=== PATIENT | male | born 1950 | race Caucasian/White ===

== ENCOUNTER → 2016-11-17 | Outpatient (CLI) | payer MEDICARE ==
[~2016-11-17] MED LIST: ASP81TEC PO; DEXL60CA5 PO; HCT25T PO; LISI40TA PO; NFNEB10T PO; ONDA-42 SL
--- NOTE | 2016-11-17 12:12 | Diagnostic Imaging Report ---
INDICATION: Chest pain. PA and lateral chest obtained at 10:04 a.m. FINDINGS: Heart and mediastinal silhouette are normal in appearance. The lungs are clear. There is no pneumothorax or pleural fluid. IMPRESSION: Negative chest. Dictated by: Dictated on workstation # [id number]
== END ==
LOC: RAD 09:39
PROVIDERS: ATTEND Nurse Practitioner Family
DX: R05 Cough (principal)
CPT/HCPCS: 71020

== ENCOUNTER 2017-09-11 06:28 | Observation (INO) | payer MEDICARE ==
[~2017-09-11] VITALS: Ht 172.7 cm; Wt 96.2 kg
[~2017-09-11 06:28] MED LIST changes: +ASPI-999 PO; +ATOR40TA PO; +CLOP75TA28 PO; +LISI1TAB10 PO; +PANT40TA3 PO
[2017-09-11 06:42] LABS: BASOPHILS % (AUTO) 0 % (0-10); EOSINOPHILS # (AUTO) 0.1 10^3/uL (0.0-0.3); EOSINOPHILS % (AUTO) 2 % (0-10); HEMATOCRIT 42 % (40-54); LYMPHOCYTES # (AUTO) 2.6 X 10^3 (1.0-4.0); LYMPHOCYTES % (AUTO) 42 % (12-44); MEAN CORPUSCULAR HEMOGLOBIN 32 PG (25-34); MEAN CORPUSCULAR HGB CONC 36 G/DL (32-36); MEAN CORPUSCULAR VOLUME 88 FL (80-99); MEAN PLATELET VOLUME 9.9 FL (7.4-10.4); MONOCYTES # (AUTO) 0.7 X 10^3 (0.0-1.0); MONOCYTES % (AUTO) 11 % (0-12); NEUTROPHILS # (AUTO) 2.8 X 10^3 (1.8-7.8); NEUTROPHILS % (AUTO) 46 % (42-75); PLATELET COUNT 185 10^3/uL (130-400); RED BLOOD COUNT 4.73 10^6/uL (4.35-5.85); RED CELL DISTRIBUTION WIDTH 13.7 % (10.0-14.5); WHITE BLOOD COUNT 6.2 10^3/uL (4.3-11.0)
[2017-09-11] MEDS ORDERED: ASPIRIN 81 MG CHEW (CHILDREN'S ASA) PO ONE (06:45)
--- NOTE | 2017-09-11 06:51 | ED Chest Pain ---
General Chief Complaint: Chest Pain Stated Complaint: CHEST PAIN Source: patient Exam Limitations: no limitations History of Present Illness Date Seen by Provider: Sep 11, 2017 Time Seen by Provider: 06:25 Initial Comments Here with report of chest pain that is in the center of his chest along the lower third of the sternum. It is nonradiating. Seems to be worse when lying on his chest and better when lying on his back. States the pain is usually worse in the evening and nighttime as well as the morning and better during the day when he is working. The pain is been going on for 3 weeks. 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 Pain is to be a little worse today so he presents for evaluation. Denies breathing problems, nausea, vomiting, weakness or dizziness. Does have history of heart stent last year as well as being treated for hypertension and cholesterol. Reports taking his meds as directed. Timing/Duration: changing over time Severity/Quality: moderate, aching Location: central Radiation: no radiation Activities at Onset: none Prior CP/Workup: cardiac cath Modifying Factors: improves with lying down (on his chest), improves with movement ASA po DECK SUPERVISOR: No NTG SL DECK SUPERVISOR: No Associated Symptoms: No back pain, No fever/chills, No nausea/vomiting, No shortness of breath, No weakness Allergies and Home Medications Allergies Coded Allergies: No Known Drug Allergies (Unverified , 03/03/11) Home Medications Aspirin 81 Mg Tab.chew, 81 MG PO DAILY Prescribed by: REBECA MYERS on 12/24/16856 Atorvastatin Calcium 40 Mg Tablet, 40 MG PO HS Prescribed by: REBECA MYERS on 12/24/16856 Clopidogrel Bisulfate 75 Mg Tablet, 75 MG PO DAILY Prescribed by: REBECA MYERS on 12/24/16856 Lisinopril/Hydrochlorothiazide 1 Each Tablet, 1 TAB PO DAILY, (Reported) Pantoprazole Sodium 40 Mg Tablet.dr, 40 MG PO DAILY@0700 Prescribed by: REBECA MYERS on 12/24/16856 Patient Home Medication List Home Medication List Reviewed: Yes Review of Systems Constitutional: see HPI; No chills, No fever EENTM: No Symptoms Reported Respiratory: No Symptoms Reported Cardiovascular: See HPI, Chest Pain; Denies Edema, Denies Lightheadedness Gastrointestinal: Denies Abdominal Pain, Denies Nausea, Denies Vomiting Genitourinary: No Symptoms Reported Musculoskeletal: no symptoms reported Skin: no symptoms reported All Other Systems Reviewed Negative Unless Noted: Yes Past Wbvqzvy-Tnxzrb-Cyiqur Hx Past Med/Social Hx: Reviewed Nursing Past Med/Soc Hx Patient Social History Alcohol Use: Denies Use Recreational Drug Use: No Smoking Status: Never a Smoker 2nd Hand Smoke Exposure: No Recent Foreign Travel: No Contact w/Someone Who Travel: No Recent Hopitalizations: No Physical Abuse: No Sexual Abuse: No Mistreated: No Fear: No Immunizations Up To Date Tetanus Booster (TDap): More than 5yrs Date of Influenza Vaccine: Mar 11, 2013 Seasonal Allergies Seasonal Allergies: No Past Medical History Surgeries: Yes Abdominal (EGD), Coronary Stent, Orthopedic Respiratory: No Cardiac: Yes Hypertension Neurological: No Reproductive Disorders: No Gastrointestinal: Yes (esophageal stricture with dilation) Musculoskeletal: No Endocrine: No Cancer: No Psychosocial: No Nursing Suicide Risk Score: 0 Integumentary: No Blood Disorders: No Family Medical History Reviewed Nursing Family Hx No Pertinent Family Hx Physical Exam Vital Signs Vital Signs - First Documented 09/11/17 06:28 Temp 97.6 Pulse 66 Resp 18 B/P (MAP) 152/93 (112) Pulse Ox 95 O2 Delivery Room Air O2 Flow Rate 2.0 Capillary Refill : General Appearance: No Apparent Distress, WD/WN HEENT: PERRL/EOMI, Pharynx Normal Neck: Non Tender, Supple Respiratory: Chest Non Tender, Lungs Clear, Normal Breath Sounds Cardiovascular: Regular Rate, Rhythm, No Murmur Gastrointestinal: Non Tender, Soft Extremity: Normal Inspection, Normal Range of Motion, Non Tender Neurologic/Psychiatric: Alert, Oriented x3 Skin: Normal Color, Warm/Dry Progress/Results/Core Measures Lab Results Laboratory Tests Test 09/11/17 06:35 Range/Units White Blood Count 6.2 4.3-11.0 10^3/uL Red Blood Count 4.73 4.35-5.85 10^6/uL Hemoglobin 15.0 13.3-17.7 G/DL Hematocrit 42 40-54 % Mean Corpuscular Volume 88 80-99 FL Mean Corpuscular Hemoglobin 32 25-34 PG Mean Corpuscular Hemoglobin Concent 36 32-36 G/DL Red Cell Distribution Width 13.7 10.0-14.5 % Platelet Count 185 130-400 10^3/uL Mean Platelet Volume 9.9 7.4-10.4 FL Neutrophils (%) (Auto) 46 42-75 % Lymphocytes (%) (Auto) 42 12-44 % Monocytes (%) (Auto) 11 0-12 % Eosinophils (%) (Auto) 2 0-10 % Basophils (%) (Auto) 0 0-10 % Neutrophils # (Auto) 2.8 1.8-7.8 X 10^3 Lymphocytes # (Auto) 2.6 1.0-4.0 X 10^3 Monocytes # (Auto) 0.7 0.0-1.0 X 10^3 Eosinophils # (Auto) 0.1 0.0-0.3 10^3/uL Basophils # (Auto) 0.0 0.0-0.1 10^3/uL Prothrombin Time 12.5 12.2-14.7 SEC INR Comment 0.9 0.8-1.4 Activated Partial Thromboplast Time 30 24-35 SEC D-Dimer 0.30 0.00-0.49 UG/ML Sodium Level 142 135-145 MMOL/L Potassium Level 3.9 3.6-5.0 MMOL/L Chloride Level 112 H 98-107 MMOL/L Carbon Dioxide Level 21 21-32 MMOL/L Anion Gap 9 5-14 MMOL/L Blood Urea Nitrogen 22 H 7-18 MG/DL Creatinine 0.95 0.60-1.30 MG/DL Estimat Glomerular Filtration Rate > 60 BUN/Creatinine Ratio 23 Glucose Level 104 70-105 MG/DL Calcium Level 9.1 8.5-10.1 MG/DL Magnesium Level 2.4 1.8-2.4 MG/DL Total Bilirubin 0.8 0.1-1.0 MG/DL Aspartate Amino Transf (AST/SGOT) 35 H 5-34 U/L Alanine Aminotransferase (ALT/SGPT) 41 0-55 U/L Alkaline Phosphatase 69 40-136 U/L Myoglobin 115.6 H 10.0-92.0 NG/ML Troponin I < 0.30 <0.30 NG/ML Total Protein 6.9 6.4-8.2 GM/DL Albumin 4.0 3.2-4.5 GM/DL Lipase 19 8-78 U/L My Orders Orders - SHIRLEY LARA MD Cbc With Automated Diff (09/11/17 06:31) Magnesium (09/11/17 06:31) Chest 1 View, Ap/Pa Only (09/11/17 06:31) Ekg Tracing (09/11/17 06:31) Cardiac Profile 1 (09/11/17 06:31) Comprehensive Metabolic Panel (09/11/17 06:31) Myoglobin Serum (09/11/17 06:31) Protime With Inr (09/11/17 06:31) Partial Thromboplastin Time (09/11/17 06:31) O2 (09/11/17 06:31) Monitor-Rhythm Ecg Trace Only (09/11/17 06:31) Lipid Panel (09/12/17 06:00) Aspirin Chewable Tablet (Baby Aspirin Ch (09/11/17 06:45) Saline Lock/Iv-Start (09/11/17 06:31) Lipase (09/11/17 06:31) Fibrin Degradation Products (09/11/17 06:31) Medications Given in ED Current Medications Medications Dose Ordered Sig/Kayleigh Route Start Time Stop Time Status Last Admin Dose Admin Aspirin 324 mg ONCE ONCE PO 09/11/17 06:45 09/11/17 06:46 DC 09/11/17 06:42 324 MG Vital Signs/I&O 09/11/17 09/11/17 09/11/17 09/11/17 06:28 06:28 06:48 07:42 Temp 97.6 Pulse 66 55 Resp 18 18 B/P (MAP) 152/93 (112) 170/68 (102) Pulse Ox 95 95 97 O2 Delivery Room Air Nasal Cannula Nasal Cannula Room Air O2 Flow Rate 2.0 2.00 Progress Note : Progress Note Seen and evaluated. IV, labs, EKG and chest x-ray ordered. ASA 324 mg by mouth ordered. Reviewed previous history including heart catheterization from last year. Monitor patient. 0735: Dr. Woodall paged. 2361: I discussed the case with Dr. Blanco, on-call for cardiology. Not sure if Dr. Celaya is in town currently. We will retry after 8 a.m. and likely admit for observation. 9781: I was unable to reach Dr. Woodall and. Dr. Blanco will see patient in consult today and is requesting admission. I discussed the case with Dr. Castro and she accepts patient for admission, observation status for continued workup of the chest pain. This was discussed with the patient who agrees. Initial ECG Impression Date: Sep 11, 2017 Initial ECG Impression Time: 06:25 Initial ECG Rate: 58 Initial ECG Rhythm: Normal Sinus Initial ECG Impression: Normal Initial ECG Comparisson: Unchanged Comment Sinus rhythm with first degree AV block and right bundle branch block. Unchanged from previous of 12/24/16. No evidence of ST elevation [place]. Interpreted by me. Diagonstic Imaging: Xray Plain Films/CT/US/NM/MRI: chest Comments %(RAD)RES..mtdd.print.filter("cj")[facility] %(RAD)RES..mtdd.print.filter("cj")[place], [place] NAME: DELVIS DE LA GARZA [facility] REC#: [id number] PT STATUS: REG ER : 1950 PHYSICIAN: SHIRLEY LARA MD ADMIT DATE: 09/11/17/ER Draft Date of Exam:09/11/17 CHEST 1 VIEW, AP/PA ONLY INDICATION: Chest pain. TECHNIQUE: Single view chest 6:45 AM. CORRELATION STUDY: 12/22/2016 FINDINGS: Heart size enlarged. Mediastinum is prominent but generally stable given difference in technique. Vasculature within normal limits. The lungs are clear with no consolidating infiltrate. There is no significant effusion or pneumothorax. IMPRESSION: 1. Generally stable chest demonstrates no acute abnormality. Dictated on workstation # [id number] Dict: 09/11/17 0652 Trans: 09/11/17 0654 CORNELIA [id number] Interpreted by: MARYAN DONOVAN DO Electronically signed by: Departure Communication (Admissions) Time/Spoke to Admitting Phy: 08:30 Time/Spoke to Consulting Phy: 08:25 Impression Primary Impression: Chest pain Qualified Codes: R07.9 - Chest pain, unspecified Disposition: ADMITTED INPATIENT Condition: Stable Admissions Decision to Admit Reason: Admit from ER (General) Decision to Admit/Date: Sep 11, 2017 Time/Decision to Admit Time: 08:25 Departure-Patient Inst. Decision time for Depature: 08:25 Referrals: ZACK LEAVITT MD (PCP/Family) Primary Care Physician SHIRLEY LARA MD Sep 11, 2017 06:51
--- NOTE | 2017-09-11 06:55 | Diagnostic Imaging Report ---
INDICATION: Chest pain. TECHNIQUE: Single view chest 6:45 AM. CORRELATION STUDY: 12/22/2016 FINDINGS: Heart size enlarged. Mediastinum is prominent but generally stable given difference in technique. Vasculature within normal limits. The lungs are clear with no consolidating infiltrate. There is no significant effusion or pneumothorax. IMPRESSION: 1. Generally stable chest demonstrates no acute abnormality. Dictated by: Dictated on workstation # [id number]
[2017-09-11 06:58] LABS: INR 0.9 (0.8-1.4); PROTHROMBIN TIME PATIENT 12.5 SEC (12.2-14.7)
[2017-09-11 07:09] LABS: ALANINE AMINOTRANSFERASE 41 U/L (0-55); ALKALINE PHOSPHATASE 69 U/L (40-136); BILIRUBIN,TOTAL 0.8 MG/DL (0.1-1.0); BUN/CREATININE RATIO 23; CALCIUM 9.1 MG/DL (8.5-10.1); CARBON DIOXIDE 21 MMOL/L (21-32); CHLORIDE 112 MMOL/L (98-107); CREATININE SERUM 0.95 MG/DL (0.60-1.30); GFR ESTIMATED > 60; GLUCOSE 104 MG/DL (70-105); LIPASE 19 U/L (8-78); MAGNESIUM 2.4 MG/DL (1.8-2.4); POTASSIUM 3.9 MMOL/L (3.6-5.0); SODIUM 142 MMOL/L (135-145); TOTAL PROTEIN 6.9 GM/DL (6.4-8.2)
[2017-09-11 07:16] LABS: MYOGLOBIN SERUM 115.6 NG/ML (10.0-92.0)
[2017-09-11 07:42] VITALS: BP 170/68
--- OUTSIDE RECORDS SUMMARY | 2017-09-11 08:43 | XMS REPORT | Continuity of Care Document ---
Author Author [facility] Organization [facility] Address Unknown Phone Unavailable Allergies Active Description Code Type Severity Reaction Onset Reported/Identified Relationship to Patient Clinical Status Yes No Known Drug Allergies [id number] Drug Allergy Unknown N/A 03/03/2011 Medications There is no data. Problems Date Dx Coded Attending Type Code Diagnosis Diagnosed By 03/11/2013 ABHIJEET XIE MD Ot 272.4 HYPERLIPIDEMIA NEC/NOS 03/11/2013 ABHIJEET XIE MD Ot 276.8 HYPOPOTASSEMIA 03/11/2013 ABHIJEET XIE MD Ot 401.9 HYPERTENSION NOS 03/11/2013 ABHIJEET XIE MD Ot 414.01 CORONARY ATHEROSCLEROSIS OF [place] CORON 03/11/2013 ABHIJEET XIE MD Ot 427.89 CARDIAC DYSRHYTHMIAS NEC 03/11/2013 ABHIJEET XIE MD Ot 530.3 ESOPHAGEAL STRICTURE 03/11/2013 ABHIJEET XIE MD Ot 530.81 ESOPHAGEAL REFLUX 03/11/2013 ABHIJEET XIE MD Ot 786.50 CHEST PAIN NOS 03/11/2013 ABHIJEET XIE MD Ot V58.69 OTH MED,LT,CURRENT USE 11/24/2013 MICHEAL ALANIS DO Ot 558.9 NONINF GASTROENTERIT NEC 11/17/2016 ZACK LEAVITT MD Ot 530.5 DYSKINESIA OF ESOPHAGUS 11/17/2016 ZACK LEAVITT MD Ot 786.05 SHORTNESS OF BREATH 11/17/2016 ZACK LEAVITT MD Ot 786.50 CHEST PAIN NOS 12/12/2016 MORENITA MEJIA MARITIME GUARD Ot R05 COUGH 12/19/2016 MORENITA MEJIA APRN Ot R05 COUGH 12/24/2016 TIFFANIE PULLIAM MD Ot E78.5 HYPERLIPIDEMIA, UNSPECIFIED 12/24/2016 TIFFANIE PULLIAM MD Ot I10 ESSENTIAL (PRIMARY) HYPERTENSION 12/24/2016 TIFFANIE PULLIAM MD Ot I25.110 ATHSCL HEART DISEASE OF [place] COR ART W 12/24/2016 HERACLIO NOONAN, TIFFANIE Maravilla Ot R73.09 OTHER ABNORMAL GLUCOSE 12/24/2016 TIFFANIE PULLIAM MD Ot 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 02/20/2017 TREE NOONAN ZACK D Ot 530.5 DYSKINESIA OF ESOPHAGUS 02/20/2017 TREE NOONAN ZACK D Ot 786.05 SHORTNESS OF BREATH 02/20/2017 TREE NOONAN ZACK D Ot 786.50 CHEST PAIN NOS 02/20/2017 MORENITA MEJIA MARITIME GUARD Ot R05 COUGH 02/20/2017 TREE NOONAN ZACK Annamarie Ot 530.5 DYSKINESIA OF ESOPHAGUS 02/20/2017 TREE NOONAN ZACK D Ot 786.05 SHORTNESS OF BREATH 02/20/2017 TREE NOONAN ZACK D Ot 786.50 CHEST PAIN NOS 02/20/2017 MORENITA MEJIA MARITIME GUARD Ot R05 COUGH 03/10/2017 TREE NOONAN ZACK D Ot 530.5 DYSKINESIA OF ESOPHAGUS 03/10/2017 TREE NOONAN ZACK D Ot 786.05 SHORTNESS OF BREATH 03/10/2017 TREE NOONAN ZACK D Ot 786.50 CHEST PAIN NOS 03/10/2017 MORENITA MEJIA MARITIME GUARD Ot R05 COUGH 03/19/2017 TREE NOONAN ZACK D Ot 530.5 DYSKINESIA OF ESOPHAGUS 03/19/2017 TREE NOONAN ZACK D Ot 786.05 SHORTNESS OF BREATH 03/19/2017 TREE NOONAN ZACK D Ot 786.50 CHEST PAIN NOS 03/19/2017 MORENITA MEJIA MARITIME GUARD Ot R05 COUGH 09/09/2017 TREE NOONAN ZACK D Ot 530.5 DYSKINESIA OF ESOPHAGUS 09/09/2017 TREE NOONAN ZACK D Ot 786.05 SHORTNESS OF BREATH 09/09/2017 TREE NOONAN ZACK D Ot 786.50 CHEST PAIN NOS 09/09/2017 MORENITA MEJIA MARITIME GUARD Ot R05 COUGH Procedures There is no data. Results Test Result Range Complete blood count (CBC) with automated white blood cell (WBC) differential - 12/22/16 17:57 Blood leukocytes automated count (number/volume) 7.4 10*3/uL 4.3-11.0 Blood erythrocytes automated count (number/volume) 4.86 10*6/uL 4.35-5.85 Venous blood hemoglobin measurement (mass/volume) 15.4 g/dL 13.3-17.7 Blood hematocrit (volume fraction) 44 % 40-54 Automated erythrocyte mean corpuscular volume 90 [foz_us] 80-99 Automated erythrocyte mean corpuscular hemoglobin (mass per erythrocyte) 32 pg 25-34 Automated erythrocyte mean corpuscular hemoglobin concentration measurement ( mass/volume) 35 g/dL 32-36 Automated erythrocyte distribution width ratio 14.2 % 10.0-14.5 Automated blood platelet count (count/volume) 202 10*3/uL 130-400 Automated blood platelet mean volume measurement 10.4 [foz_us] 7.4-10.4 Automated blood neutrophils/100 leukocytes 64 % 42-75 Automated blood lymphocytes/100 leukocytes 28 % 12-44 Blood monocytes/100 leukocytes 7 % 0-12 Automated blood eosinophils/100 leukocytes 1 % 0-10 Automated blood basophils/100 leukocytes 0 % 0-10 Blood neutrophils automated count (number/volume) 4.7 10*3 1.8-7.8 Blood lymphocytes automated count (number/volume) 2.1 10*3 1.0-4.0 Blood monocytes automated count (number/volume) 0.5 10*3 0.0-1.0 Automated eosinophil count 0.1 10*3/uL 0.0-0.3 Automated blood basophil count (count/volume) 0.0 10*3/uL 0.0-0.1 PT panel in platelet poor plasma by coagulation assay - 12/22/16 17:57 Prothrombin time (PT) in platelet poor plasma by coagulation assay 12.7 s 12.2-14.7 INR in platelet poor plasma or blood by coagulation assay 1.0 0.8-1.4 Activated partial thromboplastin time (aPTT) in platelet poor plasma bycoagulation assay - 12/22/16 17:57 Activated partial thromboplastin time (aPTT) in platelet poor plasma bycoagulation assay 28 s 24-35 Comprehensive metabolic panel - 12/22/16 17:57 Serum or plasma sodium measurement (moles/volume) 140 mmol/L 135-145 Serum or plasma potassium measurement (moles/volume) 3.8 mmol/L 3.6-5.0 Serum or plasma chloride measurement (moles/volume) 106 mmol/L 98-107 Carbon dioxide 21 mmol/L 21-32 Serum or plasma anion gap determination (moles/volume) 13 mmol/L 5-14 Serum or plasma urea nitrogen measurement (mass/volume) 21 mg/dL 7-18 Serum or plasma creatinine measurement (mass/volume) 1.09 mg/dL 0.60-1.30 Serum or plasma urea nitrogen/creatinine mass ratio 19 NRG Serum or plasma creatinine measurement with calculation of estimated glomerular filtration rate > NRG Serum or plasma glucose measurement (mass/volume) 128 mg/dL 70-105 Serum or plasma calcium measurement (mass/volume) 9.3 mg/dL 8.5-10.1 Serum or plasma total bilirubin measurement (mass/volume) 1.0 mg/dL 0.1-1.0 Serum or plasma alkaline phosphatase measurement (enzymatic activity/volume) 54 U/L 40-136 Serum or plasma aspartate aminotransferase measurement (enzymatic activity/ volume) 16 U/L 5-34 Serum or plasma alanine aminotransferase measurement (enzymatic activity/volume ) 28 U/L 0-55 Serum or plasma protein measurement (mass/volume) 7.0 g/dL 6.4-8.2 Serum or plasma albumin measurement (mass/volume) 4.0 g/dL 3.2-4.5 Magnesium - 12/22/16 17:57 Magnesium 1.7 mg/dL 1.8-2.4 Serum or plasma troponin i.cardiac measurement (mass/volume) - 12/22/16 17:57 Serum or plasma troponin i.cardiac measurement (mass/volume) < ng/ mL <0.30 Myoglobin, serum - 12/22/16 17:57 Myoglobin, serum 60.9 ng/mL 10.0-92.0 Lipase - 12/22/16 17:57 Lipase 16 U/L 8-78 Serum or plasma troponin i.cardiac measurement (mass/volume) - 12/23/16 00:40 Serum or plasma troponin i.cardiac measurement (mass/volume) < ng/ mL <0.30 Lipid 1996 panel - 12/23/16 03:59 Serum or plasma triglyceride measurement (mass/volume) 167 mg/dL <150 Serum or plasma cholesterol measurement (mass/volume) 159 mg/dL < 200 Serum or plasma cholesterol in HDL measurement (mass/volume) 32 mg/ dL 40-60 Cholesterol in LDL [mass/volume] in serum or plasma by direct assay 107 mg/dL 1-129 Serum or plasma cholesterol in VLDL measurement (mass/volume) 33 mg/ dL 5-40 PT panel in platelet poor plasma by coagulation assay - 12/23/16 12:05 Prothrombin time (PT) in platelet poor plasma by coagulation assay 12.3 s 12.2-14.7 INR in platelet poor plasma or blood by coagulation assay 0.9 0.8-1.4 Activated partial thromboplastin time (aPTT) in platelet poor plasma bycoagulation assay - 12/23/16 12:05 Activated partial thromboplastin time (aPTT) in platelet poor plasma bycoagulation assay 27 s 24-35 Methicillin resistant Staphylococcus aureus (MRSA) screening culture - 13:27 Methicillin resistant Staphylococcus aureus (MRSA) screening culture NEG [facility] Complete blood count (CBC) with automated white blood cell (WBC) differential - 12/24/16 08:20 Blood leukocytes automated count (number/volume) 7.7 10*3/uL 4.3-11.0 Blood erythrocytes automated count (number/volume) 4.98 10*6/uL 4.35-5.85 Venous blood hemoglobin measurement (mass/volume) 15.9 g/dL 13.3-17.7 Blood hematocrit (volume fraction) 45 % 40-54 Automated erythrocyte mean corpuscular volume 91 [foz_us] 80-99 Automated erythrocyte mean corpuscular hemoglobin (mass per erythrocyte) 32 pg 25-34 Automated erythrocyte mean corpuscular hemoglobin concentration measurement ( mass/volume) 35 g/dL 32-36 Automated erythrocyte distribution width ratio 14.0 % 10.0-14.5 Automated blood platelet count (count/volume) 182 10*3/uL 130-400 Automated blood platelet mean volume measurement 9.9 [foz_us] 7.4-10.4 Automated blood neutrophils/100 leukocytes 64 % 42-75 Automated blood lymphocytes/100 leukocytes 26 % 12-44 Blood monocytes/100 leukocytes 8 % 0-12 Automated blood eosinophils/100 leukocytes 1 % 0-10 Automated blood basophils/100 leukocytes 0 % 0-10 Blood neutrophils automated count (number/volume) 4.9 10*3 1.8-7.8 Blood lymphocytes automated count (number/volume) 2.0 10*3 1.0-4.0 Blood monocytes automated count (number/volume) 0.6 10*3 0.0-1.0 Automated eosinophil count 0.1 10*3/uL 0.0-0.3 Automated blood basophil count (count/volume) 0.0 10*3/uL 0.0-0.1 Comprehensive metabolic panel - 12/24/16 08:20 Serum or plasma sodium measurement (moles/volume) 136 mmol/L 135-145 Serum or plasma potassium measurement (moles/volume) 4.2 mmol/L 3.6-5.0 Serum or plasma chloride measurement (moles/volume) 103 mmol/L 98-107 Carbon dioxide 24 mmol/L 21-32 Serum or plasma anion gap determination (moles/volume) 9 mmol/L 5-14 Serum or plasma urea nitrogen measurement (mass/volume) 17 mg/dL 7-18 Serum or plasma creatinine measurement (mass/volume) 0.94 mg/dL 0.60-1.30 Serum or plasma urea nitrogen/creatinine mass ratio 18 NRG Serum or plasma creatinine measurement with calculation of estimated glomerular filtration rate > NRG Serum or plasma glucose measurement (mass/volume) 172 mg/dL 70-105 Serum or plasma calcium measurement (mass/volume) 8.9 mg/dL 8.5-10.1 Serum or plasma total bilirubin measurement (mass/volume) 1.5 mg/dL 0.1-1.0 Serum or plasma alkaline phosphatase measurement (enzymatic activity/volume) 57 U/L 40-136 Serum or plasma aspartate aminotransferase measurement (enzymatic activity/ volume) 17 U/L 5-34 Serum or plasma alanine aminotransferase measurement (enzymatic activity/volume ) 30 U/L 0-55 Serum or plasma protein measurement (mass/volume) 6.8 g/dL 6.4-8.2 Serum or plasma albumin measurement (mass/volume) 3.9 g/dL 3.2-4.5 Magnesium - 12/24/16 08:20 Magnesium 2.0 mg/dL 1.8-2.4 Complete blood count (CBC) with automated white blood cell (WBC) differential - 09/11/17 06:35 Blood leukocytes automated count (number/volume) 6.2 10*3/uL 4.3-11.0 Blood erythrocytes automated count (number/volume) 4.73 10*6/uL 4.35-5.85 Venous blood hemoglobin measurement (mass/volume) 15.0 g/dL 13.3-17.7 Blood hematocrit (volume fraction) 42 % 40-54 Automated erythrocyte mean corpuscular volume 88 [foz_us] 80-99 Automated erythrocyte mean corpuscular hemoglobin (mass per erythrocyte) 32 pg 25-34 Automated erythrocyte mean corpuscular hemoglobin concentration measurement ( mass/volume) 36 g/dL 32-36 Automated erythrocyte distribution width ratio 13.7 % 10.0-14.5 Automated blood platelet count (count/volume) 185 10*3/uL 130-400 Automated blood platelet mean volume measurement 9.9 [foz_us] 7.4-10.4 Automated blood neutrophils/100 leukocytes 46 % 42-75 Automated blood lymphocytes/100 leukocytes 42 % 12-44 Blood monocytes/100 leukocytes 11 % 0-12 Automated blood eosinophils/100 leukocytes 2 % 0-10 Automated blood basophils/100 leukocytes 0 % 0-10 Blood neutrophils automated count (number/volume) 2.8 10*3 1.8-7.8 Blood lymphocytes automated count (number/volume) 2.6 10*3 1.0-4.0 Blood monocytes automated count (number/volume) 0.7 10*3 0.0-1.0 Automated eosinophil count 0.1 10*3/uL 0.0-0.3 Automated blood basophil count (count/volume) 0.0 10*3/uL 0.0-0.1 Fibrin D-dimer FEU measurement in platelet poor plasma (mass/volume) - 06:35 Fibrin D-dimer FEU measurement in platelet poor plasma (mass/volume) 0.30 ug/mL 0.00-0.49 PT panel in platelet poor plasma by coagulation assay - 09/11/17 06:35 Prothrombin time (PT) in platelet poor plasma by coagulation assay 12.5 s 12.2-14.7 INR in platelet poor plasma or blood by coagulation assay 0.9 0.8-1.4 Activated partial thromboplastin time (aPTT) in platelet poor plasma bycoagulation assay - 09/11/17 06:35 Activated partial thromboplastin time (aPTT) in platelet poor plasma bycoagulation assay 30 s 24-35 Comprehensive metabolic panel - 09/11/17 06:35 Serum or plasma sodium measurement (moles/volume) 142 mmol/L 135-145 Serum or plasma potassium measurement (moles/volume) 3.9 mmol/L 3.6-5.0 Serum or plasma chloride measurement (moles/volume) 112 mmol/L 98-107 Carbon dioxide 21 mmol/L 21-32 Serum or plasma anion gap determination (moles/volume) 9 mmol/L 5-14 Serum or plasma urea nitrogen measurement (mass/volume) 22 mg/dL 7-18 Serum or plasma creatinine measurement (mass/volume) 0.95 mg/dL 0.60-1.30 Serum or plasma urea nitrogen/creatinine mass ratio 23 NRG Serum or plasma creatinine measurement with calculation of estimated glomerular filtration rate > NRG Serum or plasma glucose measurement (mass/volume) 104 mg/dL 70-105 Serum or plasma calcium measurement (mass/volume) 9.1 mg/dL 8.5-10.1 Serum or plasma total bilirubin measurement (mass/volume) 0.8 mg/dL 0.1-1.0 Serum or plasma alkaline phosphatase measurement (enzymatic activity/volume) 69 U/L 40-136 Serum or plasma aspartate aminotransferase measurement (enzymatic activity/ volume) 35 U/L 5-34 Serum or plasma alanine aminotransferase measurement (enzymatic activity/volume ) 41 U/L 0-55 Serum or plasma protein measurement (mass/volume) 6.9 g/dL 6.4-8.2 Serum or plasma albumin measurement (mass/volume) 4.0 g/dL 3.2-4.5 Magnesium - 09/11/17 06:35 Magnesium 2.4 mg/dL 1.8-2.4 Myoglobin, serum - 09/11/17 06:35 Myoglobin, serum 115.6 ng/mL 10.0-92.0 Serum or plasma troponin i.cardiac measurement (mass/volume) - 09/11/17 06:35 Serum or plasma troponin i.cardiac measurement (mass/volume) < ng/ mL <0.30 Lipase - 09/11/17 06:35 Lipase 19 U/L 8-78 Myoglobin, serum - 09/11/17 06:35 Myoglobin, serum 115.6 ng/mL 10.0-92.0 Lipase - 09/11/17 06:35 Lipase 19 U/L 8-78 Encounters ACCT No. Visit Date/Time Discharge Status Pt. Type Provider Facility Loc./Unit Complaint [id number] 12/22/2016 20:40:00 12/24/2016 10:45:00 DIS Outpatient HERACLIO NOONAN, TIFFANIE Maravilla [facility] CHEST PAIN [id number] 11/17/2016 09:39:00 11/17/2016 23:59:59 CLS Outpatient MORENITA MEJIA APRN [facility] RAD COUGH [id number] 11/24/2013 04:48:00 11/24/2013 06:02:00 DIS Emergency ZEKE DO, MICHEAL Maravilla [facility] ER DIARRHEA X5 DAYS,LOW BLOOD PRESSURE [id number] 04/25/2013 10:42:00 04/25/2013 23:59:59 CLS Outpatient ZACK LEAVITT MD [facility] RAD CP,SOB [id number] 03/11/2013 07:30:00 03/11/2013 14:15:00 DIS Outpatient ANNE-MARIE NOONAN, ABHIJEET Riddle [facility] CATH CP [id number] 10/14/2012 08:57:00 10/14/2012 23:59:59 CLS Outpatient ZACK LEAVITT MD [facility] RAD DYSKINESIA OF ESOPHAGUS [id number] 09/11/2017 06:43:00 Document Registration [id number] 09/09/2017 16:28:00 PEN Preadmit REBECA MYERS [facility] CARD R07.89 CHEST DISCOMFORT
[2017-09-11 09:05] VITALS: BP 161/79
[2017-09-11] MEDS ORDERED: ATOR40TA70 PO (09:39)
[2017-09-11] MEDS ORDERED: CLOP75TA69 PO (09:39)
[2017-09-11] MEDS ORDERED: PANT40TA2 PO (09:39)
[2017-09-11] MEDS ORDERED: CATHETER FLUSH 10 ML SYR IV PRN (10:00)
[2017-09-11] MEDS ORDERED: morphine INJ 4 MG/ML 1 ML (VIAL/SYRINGE) IV PRN (10:00)
[2017-09-11] MEDS ORDERED: NITROGLYCERIN 0.4 MG SL TABS BTL 25'S SL PRN (10:00)
--- NOTE | 2017-09-11 10:18 | Consultation-Cardiology ---
HPI-Cardiology Cardiology Consultation: Date of Consultation 09/11/17 Time Seen by Provider: 10:15 Date of Admission Attending Physician Rima Castro MD Admitting Physician Derrell Leon MD Consulting Physician LISA NGUYEN MD, MA, FACP, FACC, FSCAI, CCDS HPI: Chief Complaint: CC: Chest discomfort 66 yo man with several week of lower midsternal and epigastric discomfort, continuous but with intermittent exacerbation, sometimes worse with swallowing or recumbency, w/o any aggravating or relieving factors, sometimes associated with a feeling of warmth that he identifies as his usual vasovagal episodes related to chronic esophageal disease. Mild difficulty with swallowing. No exertional cp or palp or syncope or shortness of breath or leg swelling Review of Systems-Cardiology Review of Systems Constitutional: No malaise, No tiredness, No weight loss, No weight gain Ears/Nose/Throat: No ear discharge, No nasal drainage, No recent hearing loss Respiratory: As described under HPI Cardiovascular: As described under HPI Gastrointestinal: As described under HPI; No constipation, No diarrhea, No nausea, No vomiting Genitourinary: No discharge, No hematuria, No other Musculoskeletal: No back pain, No joint pain Skin: No ulcerations Psychiatric/Neurological: No seizure, No focal weakness, No syncope Hematologic: No bleeding abnormalities All Other Systems Reviewed Negative Unless Noted: Yes HHL-Prxhxq-Maxlnj Hx Patient Social History Alcohol Use: Denies Use Recreational Drug Use: No Smoking Status: Never a Smoker 2nd Hand Smoke Exposure: No Recent Foreign Travel: No Recent Infectious Disease Expo: No Hospitalization with Isolation: Denies Immunizations Up To Date Tetanus Booster (TDap): More than 5yrs Date of Influenza Vaccine: Mar 11, 2013 Past Medical History PMH As described under Assessment. Family Medical History Family Medical History: He reports a brother with cardiomyopathy, but reports he had a h/o of ETOH abuse. No other family with h/o CAD. Allergies and Home Medications Allergies Coded Allergies: No Known Drug Allergies (Unverified , 09/11/17) Home Medications Atorvastatin Calcium 40 Mg Tablet, 40 MG PO HS, (Reported) Clopidogrel Bisulfate 75 Mg Tablet, 75 MG PO DAILY, (Reported) Lisinopril/Hydrochlorothiazide 1 Each Tablet, 1 TAB PO DAILY, (Reported) Pantoprazole Sodium 40 Mg Tablet.dr, 40 MG PO DAILY, (Reported) Patient Home Medication List Home Medication List Reviewed: Yes Physical Exam-Cardiology Physical Exam Vital Signs/I&O 09/11/17 09/11/17 09/11/17 09/11/17 06:28 06:28 06:48 07:42 Temp 97.6 Pulse 66 55 Resp 18 18 B/P (MAP) 152/93 (112) 170/68 (102) Pulse Ox 95 95 97 O2 Delivery Room Air Nasal Cannula Nasal Cannula Room Air O2 Flow Rate 2.0 2.00 09/11/17 09/11/17 09/11/17 09/11/17 08:54 09:05 09:40 09:58 Temp 96.5 Pulse 59 57 53 53 Resp 18 18 B/P (MAP) 135/85 161/79 (106) Pulse Ox 98 96 O2 Delivery Room Air Room Air 09/11/17 12:00 Temp 96.1 Pulse 54 Resp 18 B/P (MAP) 162/77 (105) Pulse Ox 98 O2 Delivery Room Air Capillary Refill : Less Than 3 Seconds Constitutional: AAO x 3, well-developed, well-nourished HEENT: EOMI, hearing is well preserved; No xanthelasmas are seen Neck: No carotid bruit; carotid pulses are 2 + bilaterally, with good upstrokes Respiratory: No accessory muscle use; lungs clear to percussion Cardiovascular: regular rate-rhythm, S1 and S2, gallop/S3, systolic murmur ( faint SHAHNAZ at card base) Gastrointestinal: No tender; soft; No guarding, No rebound; audible bowel sounds Extremities: No clubbing, No cyanosis, No significant edema Neurologic/Psychiatric: oriented x 3, grossly intact, power is 5/5 both on sides Skin: No rash on exposed areas, No ulcerations on exposed areas Data Review Labs Laboratory Tests 09/11/17 06:35: White Blood Count 6.2, Red Blood Count 4.73, Hemoglobin 15.0, Hematocrit 42, Mean Corpuscular Volume 88, Mean Corpuscular Hemoglobin 32, Mean Corpuscular Hemoglobin Concent 36, Red Cell Distribution Width 13.7, Platelet Count 185, Mean Platelet Volume 9.9, Neutrophils (%) (Auto) 46, Lymphocytes (%) (Auto) 42, Monocytes (%) (Auto) 11, Eosinophils (%) (Auto) 2, Basophils (%) (Auto) 0, Neutrophils # (Auto) 2.8, Lymphocytes # (Auto) 2.6, Monocytes # (Auto) 0.7, Eosinophils # (Auto) 0.1, Basophils # (Auto) 0.0, Prothrombin Time 12.5, INR Comment 0.9, Activated Partial Thromboplast Time 30, D-Dimer 0.30, Sodium Level 142, Potassium Level 3.9, Chloride Level 112H, Carbon Dioxide Level 21, Anion Gap 9, Blood Urea Nitrogen 22H, Creatinine 0.95, Estimat Glomerular Filtration Rate > 60, BUN/Creatinine Ratio 23, Glucose Level 104, Calcium Level 9.1, Magnesium Level 2.4, Total Bilirubin 0.8, Aspartate Amino Transf (AST/SGOT) 35H , Alanine Aminotransferase (ALT/SGPT) 41, Alkaline Phosphatase 69, Total Creatine Kinase 468H, Myoglobin 115.6H, Troponin I < 0.30, Total Protein 6.9, Albumin 4.0, Lipase 19 Laboratory Tests 09/11/17 06:35 A/P-Cardiology Assessment/Admission Diagnosis Chest discomfort of undeterminded etiology. No evidence of ACS, so far CAD: Cardiac cath of December 23, 2016 90% lesion to mid cx which was successfully stented with Alp. Xience 2.5 mm x 28mm. 30% lesion to prox RCA. LVEF 70%. HTN HLP - statin tx H/O esophageal stricture - treated with dilation by Dr. Vides 3-4 years ago H/O vasovagal syncope - no recent episodes Elevated fasting glucose on lab of 12-23-16 Mild bilat carotid arterial disease per u/s of January 2017 Discussion and Recomendations * Symptoms are nonspecific for cardiac-related etiology, but more specific for esophageal-related etiology. He himself thinks his symptoms are esophageal and not cardiac. Nonetheless, it is difficult to definitely exclude a cardiac etiology. Given continual symptoms, we recommended card cath for definitive cor eval. We had a long discussion. He understands the rationale, procedure, risks, benefits, potential complications and alternatives of card cath and refuses * I discussed all of the above with Dr Castro. Ok to discharge from card standpoint if and when ACS ruled out with serial troponin measurements. F/u at our office in 1-2 weeks Clinical Quality Measures AMI/AHF: ASA po Prior to arrival: No LISA NGUYEN MD FACP FACC CCDS Sep 11, 2017 10:18
[2017-09-11 12:00] VITALS: BP 162/77
[2017-09-11] MEDS: CATHETER FLUSH 10 ML SYR IV SCH ×2 (12:34→20:31)
--- NOTE | 2017-09-11 13:54 | History & Physical-Hospitalist ---
History of Present Illness HPI/Chief Complaint Pt is a 66yoCM with a PMH of HTN and CAD s/p stenting who presented to the ER with CC of central chest pain. He describes it as a "hard pain" right in the center of his chest. This has been ongoing for the past month but became more intense this week. He was seen by his political reporter last week and was supposed to have a heart cath on 09/08 but cancelled it because he did not think this was heart related. His pain continued to worsen and became more severe so he presented to the ER. He denies any association with exertion. He has not dyspnea or radiation of pain. He believes this to be due to his esophagus. He states Dr Woodall saw him this morning and recommended a cath but he declined. He denies any difficulty swallowing, nausea, vomiting, or weight loss. He has seen Dr Ahuja in the past but has not followed up with him in 7-8 years. Source: patient Date Seen 09/11/17 Time Seen by Provider: 13:47 Attending Physician Rima Castro MD PCP Zack Leavitt MD Referring Physician Date of Admission Sep 11, 2017 at 8:25 am Home Medications & Allergies Home Medications Reviewed patient Home Medication Reconciliation performed by pharmacy medication reconciliations polysomnographic technician and/or nursing. Patients Allergies have been reviewed. Allergies Allergies Coded Allergies No Known Drug Allergies (Unverified09/11/17) Past Gialuxz-Bohxpc-Lseaoa Hx Past Med/Social Hx: Reviewed Nursing Past Med/Soc Hx Patient Social History Marrital Status: Employed/Student: employed Alcohol Use: Denies Use Recreational Drug Use: No Smoking Status: Never a Smoker 2nd Hand Smoke Exposure: No Physical Abuse Screen: No Sexual Abuse: No Recent Foreign Travel: No Contact w/other who traveled: No Recent Hopitalizations: No Recent Infectious Disease Expo: No Immunizations Up To Date Tetanus Booster (TDap): More than 5yrs Date of Influenza Vaccine: Mar 11, 2013 Seasonal Allergies Seasonal Allergies: No Past Medical History Surgeries: Abdominal, Coronary Stent, Orthopedic Cardiac: Coronary Artery Disease, Hypertension Reproductive: No History of Blood Disorders: No Family History Reviewed Nursing Family Hx Diabetes, Hypertension Review of Systems Constitutional: No chills, No fever EENTM: No blurred vision, No double vision, No nose congestion, No throat pain Respiratory: No cough, No dyspnea on exertion, No short of breath Cardiovascular: chest pain; No edema, No palpitations Gastrointestinal: No abdominal pain, No constipation, No diarrhea, No hematemesis, No heartburn, No loss of appetite, No nausea, No vomiting Genitourinary: No dysuria, No frequency Musculoskeletal: No joint pain, No muscle pain Skin: No lesions, No rash Psychiatric/Neurological: Denies Headache, Denies Numbness, Denies Tingling Physical Exam Physical Exam Vital Signs Vital Signs - First Documented 09/11/17 06:28 Temp 97.6 Pulse 66 Resp 18 B/P (MAP) 152/93 (112) Pulse Ox 95 O2 Delivery Room Air O2 Flow Rate 2.0 Capillary Refill : Less Than 3 SecondsLess Than 3 Seconds General Appearance: No Apparent Distress, WD/WN HEENT: PERRL/EOMI, Moist Mucous Membranes Neck: Non Tender, Supple Respiratory: Lungs Clear, No Respiratory Distress Cardiovascular: Regular Rate, Rhythm, No Murmur Gastrointestinal: Normal Bowel Sounds, Non Tender, Soft Extremity: Normal Capillary Refill, No Calf Tenderness Neurologic/Psychiatric: Alert, Oriented x3, Normal Mood/Affect Skin: Normal Color, Warm/Dry Results Results/Procedures Labs Laboratory Tests 09/11/17 06:35 Patient resulted labs reviewed. Imaging: Reviewed Imaging Report Assessment/Plan Admission Diagnosis Chest Pain Admission Status: Observation Diagnosis/Problems Diagnosis/Problems (1) Chest pain Status: Acute Assessment & Plan: Cardiology consulted, appreciate recs Continue ASA Recommended heart cath but patient declined will follow up with Dr Woodall as outpatient Trend troponins and if negative will plan to DC tomorrow Will need to follow up with Dr Brown or surgeon here likely EGD Qualifiers: Chest pain type: unspecified Qualified Codes: R07.9 - Chest pain, unspecified (2) CAD (coronary artery disease) Status: Chronic Assessment & Plan: Continue home meds Cardiology consulted, appreciate recs Monitor on Telemetry Qualifiers: Coronary Disease-Associated Artery/Lesion type: [place] artery [place] vs. transplanted heart: [place] heart Associated angina: angina presence unspecified Qualified Codes: I25.10 - Atherosclerotic heart disease of [place] coronary artery without angina pectoris (3) Prophylactic measure Assessment & Plan: HH diet Lovenox Saline lock Clinical Quality Measures AMI/AHF: ASA po Prior to arrival: No DVT/VTE Risk/Contraindication: Risk Factor Score Per Nursin RFS Level Per Nursing on Admit: 3=High Copy Copies To 1: LISA WOODALL MD FACP FACC CCDS; ZACK LEAVITT MD, KATELYN M MD Sep 11, 2017 1:54 pm
[2017-09-11 15:52] VITALS: BP 146/69
[2017-09-11 20:38] VITALS: BP 158/70
[2017-09-11] MEDS ORDERED: ATORVASTATIN 40 MG (LIPITOR) TABLET PO SCH (21:00)
[2017-09-12 01:19] VITALS: BP 145/80
[2017-09-12 04:25] VITALS: BP 158/84
[2017-09-12] MEDS: CATHETER FLUSH 10 ML SYR IV SCH (06:31)
[2017-09-12] MEDS ORDERED: PANTOPRAZOLE 40 MG (PROTONIX) TAB PO SCH (07:00)
[2017-09-12 07:18] LABS: CHOLESTEROL 93 MG/DL (< 200); HDL CHOLESTEROL 32 MG/DL (40-60); TRIGLYCERIDES 60 MG/DL (<150); VLDL CHOLESTEROL 12 MG/DL (5-40)
[2017-09-12 08:00] VITALS: BP 140/75
[2017-09-12] MEDS ORDERED: CLOPIDOGREL 75 MG (PLAVIX) TABLET PO SCH (09:00)
[2017-09-12] MEDS ORDERED: HYDROCHLOROTHIAZIDE 25 MG (HCTZ) TAB PO SCH (09:00)
[2017-09-12] MEDS ORDERED: NON-FORMULARY MEDICATION 1 EA EA (Lisinopril/Hydrochlorothiazide (Lisinopril-Hctz 20-25 mg PO SCH (09:00)
[2017-09-12] MEDS ORDERED: lisINopril 20 MG (PRINIVIL) TABLET PO SCH (09:00)
[2017-09-12] MEDS ORDERED: ASPIRIN 81 MG CHEW (CHILDREN'S ASA) PO SCH (09:00)
[2017-09-12] MEDS ORDERED: ASPI-999 PO (09:26)
--- NOTE | 2017-09-12 09:28 | Discharge Inst-Simple/Standard ---
Discharge Inst-Standard Discharge Medications New, Converted or Re-Newed RX: Call to Patients Pharmacy Patient Instructions/Follow Up Plan of Care/Instructions/FU: Please continue to take your medications as written and keep your follow up as scheduled with Dr Gallego and Dr Woodall. Activity as Tolerated: Yes Discharge Diet: Cardiac Diet Return to The Hospital For: Chest pain, SOB, or if you feel you are getting worse. Planned Outpatient Orders/Ref. Pneu Vac Indicated: Yes GUILLERMO DELEON MD Sep 12, 2017 09:28
--- NOTE | 2017-09-12 09:33 | Discharge Summary-Hospitalist ---
Diagnosis/Chief Complaint Date of Admission Sep 11, 2017 at 08:25 Date of Discharge Discharge Date: Sep 12, 2017 Admission Diagnosis Chest Pain Discharge Diagnosis (1) Chest pain Status: Acute Assessment & Plan: Cardiology consulted, appreciate recs Continue ASA and Plavix Recommended heart cath but patient declined will follow up with Dr Woodall as outpatient Troponin negative x3 Will need to follow up with Dr Brown or surgeon here likely EGD (2) CAD (coronary artery disease) Status: Chronic Assessment & Plan: Continue home meds Cardiology consulted, appreciate recs Monitor on Telemetry (3) Prophylactic measure Assessment & Plan: HH diet Lovenox Saline lock Discharge Summary Procedures/Consulations Cardiology- Dr Woodall Discharge Physical Exam Allergies: Coded Allergies: No Known Drug Allergies (Unverified , 09/11/17) Vitals & I&Os Vital Signs Date Time Temp Pulse Resp B/P (MAP) Pulse Ox O2 Delivery O2 Flow Rate FiO2 09/12/17 08:45 Room Air 09/12/17 08:00 98.7 73 16 140/75 (96) 95 09/11/17 23:00 2.00 General Appearance: Alert, Oriented X3 Respiratory: Clear to Auscultation Cardiovascular: Regular Rate Hospital Course Pt is a 66yoCM who presented with atypical chest pain. Given his history of CAD he was admitted for a ACS rule out. He was offered heart catheterization and counseled on the risk and benefits with Dr Woodall but he declined. Troponins were trended and negative. His symptoms resolved on discharge and he was requesting DC home. He is to follow up with Dr Woodall for his CAD and he has been referred to Dr Gallego for EGD as Dr Brown could not get him in until October. Labs (last 24 hrs) Laboratory Tests 09/11/17 17:58: Troponin I < 0.30 09/11/17 23:35: Troponin I < 0.30 09/12/17 06:18: Triglycerides Level 60, Cholesterol Level 93, LDL Cholesterol Direct 47, VLDL Cholesterol 12, HDL Cholesterol 32L Patient resulted labs reviewed. Pending Labs Laboratory Tests 09/12/17 06:18: Triglycerides Level 60, Cholesterol Level 93, LDL Cholesterol Direct 47, VLDL Cholesterol 12, HDL Cholesterol 32 Imaging: Reviewed Imaging Report Discussion & Recommendations Discharge Planning: >30 minutes discharge planning Discharge Home Medications: Active Scripts Active Aspirin 81 Mg Tab.chew 81 Mg PO DAILY@0900 Reported Plavix (Clopidogrel Bisulfate) 75 Mg Tablet 75 Mg PO DAILY Atorvastatin Calcium 40 Mg Tablet 40 Mg PO HS Protonix (Pantoprazole Sodium) 40 Mg Tablet.dr 40 Mg PO DAILY Lisinopril-Hctz 20-25 mg Tab (Lisinopril/Hydrochlorothiazide) 1 Each Tablet 1 Tab PO DAILY Instructions to patient/family Please see electronic discharge instructions given to patient. Clinical Quality Measures AMI/AHF: ASA po Prior to arrival: No DVT/VTE Risk/Contraindication: Risk Factor Score Per Nursin RFS Level Per Nursing on Admit: 3=High Problem Qualifiers (1) Chest pain: Chest pain type: unspecified Qualified Codes: R07.9 - Chest pain, unspecified (2) CAD (coronary artery disease): Coronary Disease-Associated Artery/Lesion type: [place] artery [place] vs. transplanted heart: [place] heart Associated angina: angina presence unspecified Qualified Codes: I25.10 - Atherosclerotic heart disease of [place] coronary artery without angina pectoris GUILLERMO DELEON MD Sep 12, 2017 09:33
== END 2017-09-12 09:27 | disposition home or self-care (01) ==
LOC: EDUNIT# 06:28 → ER 06:30 → 4TH 08:25
PROVIDERS: ADMIT Family Medicine; ATTEND Family Medicine
DX: R07.9 Chest pain, unspecified (principal); I25.10 Atherosclerotic heart disease of native coronary artery without angina pectoris; I10 Essential (primary) hypertension; E78.5 Hyperlipidemia, unspecified; I65.23 Occlusion and stenosis of bilateral carotid arteries
CPT/HCPCS: 36415; 71045; 80053; 80061; 82550; 83690; 83735; 83874; 84484; 85025; 85379; 85610; 85730; 93005; 93041

== ENCOUNTER 2017-09-17 15:20 | Outpatient (CLI) | payer MEDICARE ==
[~2017-09-17] VITALS: Ht 172.7 cm; Wt 96.2 kg
[~2017-09-17 15:20] MED LIST changes: +ATOR40TA70 PO; +CLOP75TA69 PO; +PANT40TA2 PO
[2017-09-22] MEDS ORDERED: ASPI-999 PO (11:14)
[2017-10-05] MEDS ORDERED: ACHD5005 PO (15:27)
== END 2017-09-17 15:24 ==
LOC: PREOP 15:20
PROVIDERS: ATTEND Surgery
DX: Z01.818 Encounter for other preprocedural examination (principal); R10.13 Epigastric pain

== ENCOUNTER 2017-09-21 09:28 | Day surgery (SDC) | payer MEDICARE ==
[~2017-09-21] VITALS: Ht 172.7 cm; Wt 96.2 kg
--- OUTSIDE RECORDS SUMMARY | 2017-09-21 09:38 | XMS REPORT | Continuity of Care Document ---
Author Author [facility] Organization [facility] Address Unknown Phone Unavailable Allergies Active Description Code Type Severity Reaction Onset Reported/Identified Relationship to Patient Clinical Status Yes No Known Drug Allergies [id number] Drug Allergy Unknown N/A 09/11/2017 Medications There is no data. Problems Date Dx Coded Attending Type Code Diagnosis Diagnosed By 03/11/2013 ABHIJEET XIE MD Ot 272.4 HYPERLIPIDEMIA NEC/NOS 03/11/2013 ABHIJEET XIE MD Ot 276.8 HYPOPOTASSEMIA 03/11/2013 ABHIJEET XIE MD Ot 401.9 HYPERTENSION NOS 03/11/2013 ABHIJEET XIE MD Ot 414.01 CORONARY ATHEROSCLEROSIS OF [place] CORON 03/11/2013 ABHIJEET XIE MD Ot 427.89 [...] 786.50 CHEST PAIN NOS 12/12/2016 MORENITA MEJIA RECORD LIBRARIAN Ot R05 COUGH 12/19/2016 MORENITA MEJIA APRN Ot R05 COUGH 12/24/2016 TIFFANIE PULLIAM MD Ot E78.5 HYPERLIPIDEMIA, UNSPECIFIED 12/24/2016 TIFFANIE PULLIAM MD Ot I10 ESSENTIAL (PRIMARY) HYPERTENSION 12/24/2016 TIFFANIE PULLIAM MD Ot I25.110 ATHSCL HEART DISEASE OF [place] COR ART W 12/24/2016 HERACLIO NOONAN, TIFFANIE Maravilla Ot R73.09 OTHER ABNORMAL GLUCOSE 12/24/2016 HERACLIO NOONAN, TIFFANIE Maravilla Ot Z79.899 OTHER GRID CASTER (CURRENT) DRUG THERAPY 02/20/2017 TREE NOONAN ZACK D Ot 530.5 DYSKINESIA OF ESOPHAGUS 02/20/2017 TREE NOONAN ZACK D Ot 786.05 SHORTNESS OF BREATH 02/20/2017 TREE NOONAN ZACK D Ot 786.50 CHEST PAIN NOS 02/20/2017 MORENITA MEJIA RECORD LIBRARIAN Ot R05 COUGH 02/20/2017 TREE NOONAN ZACK D Ot 530.5 DYSKINESIA OF ESOPHAGUS 02/20/2017 TREE NOONAN ZACK D Ot 786.05 SHORTNESS OF BREATH 02/20/2017 TREE NOONAN ZACK D Ot 786.50 CHEST PAIN NOS 02/20/2017 MORENITA MEJIA RECORD LIBRARIAN Ot R05 COUGH 03/10/2017 TREE NOONAN ZACK D Ot 530.5 DYSKINESIA OF ESOPHAGUS 03/10/2017 TREE NOONAN ZACK D Ot 786.05 SHORTNESS OF BREATH 03/10/2017 TREE NOONAN ZACK D Ot 786.50 CHEST PAIN NOS 03/10/2017 MORENITA MEJIA RECORD LIBRARIAN Ot R05 COUGH 03/19/2017 TREE NOONAN ZACK D Ot 530.5 DYSKINESIA OF ESOPHAGUS 03/19/2017 TREE NOONAN ZACK D Ot 786.05 SHORTNESS OF BREATH 03/19/2017 TREE NOONAN ZACK D Ot 786.50 CHEST PAIN NOS 03/19/2017 MORENITA MEJIA RECORD LIBRARIAN Ot R05 COUGH 09/09/2017 TREE NOONAN ZACK D Ot 530.5 DYSKINESIA OF ESOPHAGUS 09/09/2017 TREE NOONAN ZACK D Ot 786.05 SHORTNESS OF BREATH 09/09/2017 TREE NOONAN ZACK D Ot 786.50 CHEST PAIN NOS 09/09/2017 MORENITA MEJIA RECORD LIBRARIAN Ot R05 COUGH 09/12/2017 GUILLERMO DELEON MD Ot E78.5 HYPERLIPIDEMIA, UNSPECIFIED 09/12/2017 GUILLERMO DELEON MD Ot I10 ESSENTIAL (PRIMARY) HYPERTENSION 09/12/2017 GUILLERMO DELEON MD Ot I25.10 ATHSCL HEART DISEASE OF [place] CORONARY 09/12/2017 GUILLERMO DELEON MD, Ot I65.23 OCCLUSION AND STENOSIS OF [place] 09/12/2017 GUILLERMO DELEON MD, Ot R07.9 CHEST PAIN, UNSPECIFIED Procedures There is no data. Results Test [...] resistant Staphylococcus aureus (MRSA) screening culture NEG NRG Complete blood count (CBC) with automated white [...] - 09/11/17 06:35 Lipase 19 U/L 8-78 Serum or plasma creatine kinase measurement (enzymatic activity/volume) - 09/11 06:35 Serum or plasma creatine kinase measurement (enzymatic activity/volume) 468 U/L 30-200 Serum or plasma troponin i.cardiac measurement (mass/volume) - 09/11/17 17:58 Serum or plasma troponin i.cardiac measurement (mass/volume) < ng/ mL <0.30 Serum or plasma troponin i.cardiac measurement (mass/volume) - 09/11/17 23:35 Serum or plasma troponin i.cardiac measurement (mass/volume) < ng/ mL <0.30 Lipid 1996 panel - 09/12/17 06:18 Serum or plasma triglyceride measurement (mass/volume) 60 mg/dL <150 Serum or plasma cholesterol measurement (mass/volume) 93 mg/dL < 200 Serum or plasma cholesterol in HDL measurement (mass/volume) 32 mg/ dL 40-60 Cholesterol in LDL [mass/volume] in serum or plasma by direct assay 47 mg/dL 1-129 Serum or plasma cholesterol in VLDL measurement (mass/volume) 12 mg/ dL 5-40 Encounters ACCT No. Visit Date/Time Discharge Status Pt. Type Provider Facility Loc./Unit Complaint [id number] 09/16/2017 06:09:00 09/16/2017 23:59:59 CLS Outpatient GENA FERRARO MD [facility] PREOP EGD [id number] 09/11/2017 08:25:00 09/12/2017 10:30:00 DIS Outpatient GUILLERMO DELEON MD [facility] 4TH CHEST PAIN [id number] 09/09/2017 16:28:00 09/09/2017 23:59:59 CLS Preadmit REBECA MYERS [facility] CARD R07.89 CHEST DISCOMFORT [id number] 12/22/2016 20:40:00 12/24/2016 10:45:00 DIS Outpatient HERACLIO NOONAN, TIFFANIE Maravilla [facility] CATH CHEST PAIN [id number] 11/17/2016 09:39:00 11/17/2016 23:59:59 CLS Outpatient MORENITA MEJIA APRN [facility] RAD COUGH [id number] 11/24/2013 04:48:00 11/24/2013 06:02:00 DIS Emergency ZEKE DO, MICHEAL Maravilla [facility] ER DIARRHEA X5 DAYS,LOW BLOOD PRESSURE [id number] 04/25/2013 10:42:00 04/25/2013 23:59:59 CLS Outpatient ZACK LEAVITT MD [facility] RAD CP,SOB [id number] 03/11/2013 07:30:00 03/11/2013 14:15:00 DIS Outpatient ABHIJEET XIE MD [facility] CATH CP [id number] 10/14/2012 08:57:00 10/14/2012 23:59:59 CLS Outpatient ZACK LEAVITT MD [facility] RAD DYSKINESIA OF ESOPHAGUS [id number] 09/21/2017 12:15:00 PEN Preadmit JASMINE NOONAN, GENA Babcock [facility] ENDO EPIGASTRIC PAIN
[2017-09-21] MEDS ORDERED: NS IV 500 ML 500 ML IV ONE (09:45)
[2017-09-21] MEDS ORDERED: NS IV 500 ML 500 ML ONE ×2 (09:55→12:01)
[2017-09-21 10:15] VITALS: BP 128/88
[2017-09-21] MEDS ORDERED: MIDAZOLAM 2 MG/2 ML (VERSED) VIAL ONE ×4 (11:32)
[2017-09-21] MEDS ORDERED: fentaNYL INJECTION 100 MCG/2 ML AMP ONE (11:32)
[2017-09-21] MEDS ORDERED: HURRICAINE EXT TUBE (BENZOCAINE) ONE (11:33)
--- NOTE | 2017-09-21 11:54 | History & Physicial ---
History of Present Illness History of Present Illness Reason for visit/HPI to undergo an upper endoscopy to investigate epigastric pain Date of Admission 09/21/17 Date Seen by Provider: Sep 21, 2017 Time Seen by Provider: 11:53 I consulted on this patient on 09/21/17 11:52 Attending Physician Gena Gallego MD Admitting Physician Derrell Leon MD Consult Allergies and Home Medications Allergies Coded Allergies: No Known Drug Allergies (Unverified , 09/11/17) Home Medications Aspirin 81 Mg Tab.chew, 81 MG PO DAILY@0900 Prescribed by: GUILLERMO DELEON on 09/12/17 0926 Atorvastatin Calcium 40 Mg Tablet, 40 MG PO HS, (Reported) Clopidogrel Bisulfate 75 Mg Tablet, 75 MG PO DAILY, (Reported) Lisinopril/Hydrochlorothiazide 1 Each Tablet, 1 TAB PO DAILY, (Reported) Pantoprazole Sodium 40 Mg Tablet.dr, 40 MG PO DAILY, (Reported) Patient Home Medication List Home Medication List Reviewed: Yes Past Jpqzqsc-Bkcjew-Tigwnl Hx Patient Social History Alcohol Use: Denies Use Recreational Drug Use: No Smoking Status: Never a Smoker 2nd Hand Smoke Exposure: No Recent Foreign Travel: No Contact w/other who traveled: No Recent Hopitalizations: No Recent Infectious Disease Expo: No Immunizations Up To Date Tetanus Booster (TDap): More than 5yrs Date of Influenza Vaccine: Mar 11, 2017 Seasonal Allergies Seasonal Allergies: No Surgeries Yes (EGD) Coronary Stent, Orthopedic Respiratory No Cardiovascular Yes Coronary Artery Disease, Hypertension Neurological No Reproductive System Hx Reproductive Disorders: No Gastrointestinal Yes (esophageal stricture with dilation) Musculoskeletal No Endocrine History of Endocrine Disorders: No Cancer No Psychosocial History of Psychiatric Problem: No Integumentary History of Skin or Integumenta: No Blood Transfusions History of Blood Disorders: No Family Medical History Significant Family History: Diabetes, Hypertension Constitutional: no symptoms reported EENTM: no symptoms reported Respiratory: no symptoms reported Cardiovascular: no symptoms reported Gastrointestinal: see HPI Genitourinary: no symptoms reported Musculoskeletal: no symptoms reported Skin: no symptoms reported Psychiatric/Neurological: No Symptoms Reported Physical Exam Vital Signs Vital Signs - First Documented 09/21/17 10:15 Temp 97.1 Pulse 57 Resp 18 B/P (MAP) 128/88 (101) Pulse Ox 96 O2 Delivery Room Air Capillary Refill : General Appearance: No Apparent Distress Neck: Normal Inspection Respiratory: Lungs Clear Cardiovascular: Regular Rate, Rhythm Gastrointestinal: Non Tender, Soft Neurologic/Psychiatric: Alert, Oriented x3 Skin: Warm/Dry Assessment/Plan Assessment and Plan gentleman with epigastric pain. For upper endoscopy Admission Diagnosis Admission Status: Other (Outpt Proc) GENA GALLEGO MD Sep 21, 2017 11:54 am
--- NOTE | 2017-09-21 11:54 | Conscious Sedation/ASA ---
Conscious Sedation Pre-Proced Time Reviewed: 11:54 ASA Class: 2 Airway Mallampati Classification: ([place] appropriate class) I. II. III, IV Lungs Heart ASA score ASA 1: a normal healthy patient ASA 2: a patient with a mild systemic disease (mid diabetes, controlled hypertension, obesity ASA 3: a patient with a severe systemic disease that limits activity (angina , COPD, prior Myocardial infarction) ASA 4: a patient with an incapacitating disease that is a constant threat to life (CHF, renal failure) ASA 5: a moribund patient not expected to survive 24 hrs. (ruptured aneurysm) ASA 6: a declared brain patient whose organs are being harvested. For emergent operations, add the letter E after the classification Grade 1 Sedation Plan: Discussed options with patient/fam Note The patient is an appropriate candidate to undergo the planned procedure, sedation, and anesthesia. The patient immediately re-assessed prior to indication. GENA FERRARO MD Sep 21, 2017 11:54 am
[2017-09-21] MEDS: fentaNYL INJECTION 100 MCG/2 ML AMP IVP PRN ×2 (12:07→12:09)
[2017-09-21] MEDS: MIDAZOLAM 2 MG/2 ML (VERSED) VIAL IVP PRN ×3 (12:08→12:16)
--- NOTE | 2017-09-21 12:30 | Endo Procedure Record ---
Endo Procedure Report Date of Procedure Last Colonoscopy: Yes (UNSURE) Sep 21, 2017 Surgeon (s) GENA FERRARO MD Post Procedure/Op Diagnosis Distal esophageal stricture Mild distal gastritis Procedure Performed EGD with antral biopsy for H. pylori Balloon dilatation of esophageal stricture Description of Procedure Anesthesia Type: Conscious Sedation Specimen(s) collected/removed antral mucosa for H. pylori Description of the Procedure indication for the procedure: This gentleman came in for an upper endoscopy to evaluate epigastric pain with intermittent dysphagia. In the past, he had undergone endoscopic balloon dilatation to address distal esophageal stricture. Informed consent was obtained after reviewing the procedure in detail. Description of procedure: he was placed in left lateral decubitus position and his vital signs were monitored. Conscious sedation was achieved using Versed and fentanyl. The flexible gastroscope was introduced down the esophagus, past the stomach, into the proximal duodenum. Findings: Esophagus: Quite tortuous with a distal, concentric, peptic stricture. It was dilated to 18 mm using a balloon Stomach: Mild distal gastritis. Biopsy for H. pylori was obtained. Duodenum: Normal He tolerated the procedure well and was taken back to the nursing area in a stable condition. Impression: Epigastric pain with dysphagia Distal esophageal stricture dilated. Distal gastritis. H. pylori status pending. Copies To: ZACK LEAVITT MD Copies To: LISA NGUYEN MD FACP FACC CCDS GENA FERRARO MD Sep 21, 2017 12:30
--- NOTE | 2017-09-21 12:32 | Discharge Inst-Simple/Standard ---
Discharge Inst-Standard Discharge Medications New, Converted or Re-Newed RX: Other Patient Instructions/Follow Up Plan of Care/Instructions/FU: Follow-up with his primary as needed Activity as Tolerated: Yes Discharge Diet: No Restrictions GENA FERRARO MD Sep 21, 2017 12:32
[2017-09-21 12:50] VITALS: BP 120/75
[2017-09-21 13:20] VITALS: BP 115/71
[2017-09-21 14:20] VITALS: BP 115/71
[2017-09-21] MEDS ORDERED: HURRICAINE EXT TUBE (BENZOCAINE) XX ONE (14:30)
[2017-09-21] MEDS ORDERED: NS IV 500 ML 500 ML IV SCH (14:45)
[2017-09-22] MEDS ORDERED: ASPI-999 PO (11:14)
[2017-10-05] MEDS ORDERED: ACHD5005 PO (15:27)
== END 2017-09-21 14:20 | disposition home or self-care (01) ==
LOC: ENDO 09:28
PROVIDERS: ATTEND Surgery
DX: K22.2 Esophageal obstruction (principal); K29.70 Gastritis, unspecified, without bleeding; Z95.5 Presence of coronary angioplasty implant and graft; I25.10 Atherosclerotic heart disease of native coronary artery without angina pectoris; I10 Essential (primary) hypertension; Z79.899 Other long term (current) drug therapy
CPT/HCPCS: 88305

== ENCOUNTER → 2017-09-24 | Outpatient (CLI) | payer MEDICARE ==
[~2017-09-24] MED LIST changes: +ACHD5005 PO
--- NOTE | 2017-09-24 09:14 | Diagnostic Imaging Report ---
PROCEDURE: US Gallbladder. TECHNIQUE: Multiple real-time grayscale images were obtained over the right upper quadrant in various projections. INDICATION: Right quadrant pain. The pancreas is obscured by bowel gas. The liver is normal in size at 15.1 cm. No liver mass is identified. The gallbladder does contain a non-mobile stone near the neck. However, no gallbladder wall thickening is seen. No pericholecystic fluid or biliary duct dilatation is seen. The right kidney is unremarkable. There is no ascites. IMPRESSION: Cholelithiasis without evidence of acute cholecystitis. Dictated by: Dictated on workstation # [id number]
== END ==
LOC: RAD 08:01
PROVIDERS: ATTEND Surgery
DX: K80.20 Calculus of gallbladder without cholecystitis without obstruction (principal)
CPT/HCPCS: 76705

== ENCOUNTER 2017-10-01 05:41 | Outpatient (CLI) | payer MEDICARE ==
[~2017-10-01] VITALS: Ht 172.7 cm; Wt 93.4 kg
[~2017-10-01 05:41] MED LIST changes: -ACHD5005 PO
== END 2017-10-01 15:46 ==
LOC: PREOP 05:41
PROVIDERS: ATTEND Surgery
DX: Z01.818 Encounter for other preprocedural examination (principal)

== ENCOUNTER 2017-10-05 11:26 | Day surgery (SDC) | payer MEDICARE ==
[~2017-10-05] VITALS: Ht 172.7 cm; Wt 93.4 kg
[2017-10-05 11:30] VITALS: BP 120/85
--- OUTSIDE RECORDS SUMMARY | 2017-10-05 11:38 | XMS REPORT | Continuity of Care Document ---
Author Author [facility] Organization [facility] Address Unknown Phone Unavailable Allergies Active Description Code Type Severity Reaction Onset Reported/Identified Relationship to Patient Clinical Status Yes No Known Drug Allergies [id number] Drug Allergy Unknown N/A 10/01/2017 Medications There is no data. Problems Date Dx Coded Attending Type Code Diagnosis Diagnosed By 03/11/2013 ABHIJEET XIE MD Ot 272.4 HYPERLIPIDEMIA NEC/NOS 03/11/2013 ABHIJEET XIE MD Ot 276.8 HYPOPOTASSEMIA 03/11/2013 ABHIJEET XIE MD Ot 401.9 HYPERTENSION NOS 03/11/2013 ABHIJEET XIE MD Ot 414.01 CORONARY ATHEROSCLEROSIS OF [place] CORON 03/11/2013 ABHIJEET XIE MD Ot 427.89 [...] 786.50 CHEST PAIN NOS 12/12/2016 MORENITA MEJIA QA TECH Ot R05 COUGH 12/19/2016 MORENITA MEJIA APRN Ot R05 COUGH 12/24/2016 TIFFANIE PULLIAM MD Ot E78.5 HYPERLIPIDEMIA, UNSPECIFIED 12/24/2016 TIFFANIE PULLIAM MD Ot I10 ESSENTIAL (PRIMARY) HYPERTENSION 12/24/2016 TIFFANIE PULLIAM MD Ot I25.110 ATHSCL HEART DISEASE OF [place]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 ART W 12/24/2016 HERACLIO NOONAN, TIFFANIE Maravilla Ot R73.09 OTHER ABNORMAL GLUCOSE 12/24/2016 HERACLIO NOONAN, TIFFANIE Maravilla Ot 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 02/20/2017 TREE NOONAN ZACK D Ot 530.5 DYSKINESIA OF [place]HAG[place] 02/20/2017 TREE NOONAN ZACK D Ot 786.05 SHORTNESS OF BREATH 02/20/2017 TREE NOONAN ZACK D Ot 786.50 CHEST PAIN NOS 02/20/2017 MORENITA MEJIA QA TECH Ot R05 COUGH 02/20/2017 TREE NOONAN ZACK D Ot 530.5 DYSKINESIA OF ESOPHAGUS 02/20/2017 TREE NOONAN ZACK D Ot 786.05 SHORTNESS OF BREATH 02/20/2017 TREE NOONAN ZACK D Ot 786.50 CHEST PAIN NOS 02/20/2017 MORENITA MEJIA QA TECH Ot R05 COUGH 03/10/2017 TREE NOONAN ZACK D Ot 530.5 DYSKINESIA OF ESOPHAGUS 03/10/2017 TREE NOONAN ZACK D Ot 786.05 SHORTNESS OF BREATH 03/10/2017 TREE NOONAN ZACK D Ot 786.50 CHEST PAIN NOS 03/10/2017 MORENITA MEJIA QA TECH Ot R05 COUGH 03/19/2017 TREE NOONAN ZACK D Ot 530.5 DYSKINESIA OF ESOPHAGUS 03/19/2017 TREE NOONAN ZACK D Ot 786.05 SHORTNESS OF BREATH 03/19/2017 TREE NOONAN ZACK D Ot 786.50 CHEST PAIN NOS 03/19/2017 MORENITA MEJIA QA TECH Ot R05 COUGH 09/09/2017 TREE NOONAN ZACK D Ot 530.5 DYSKINESIA OF ESOPHAGUS 09/09/2017 TREE NOONAN ZACK D Ot 786.05 SHORTNESS OF BREATH 09/09/2017 TREE NOONAN ZACK D Ot 786.50 CHEST PAIN NOS 09/09/2017 MORENITA EMJIA QA TECH Ot R05 COUGH 09/12/2017 GUILLERMO DELEON MD Ot E78.5 HYPERLIPIDEMIA, UNSPECIFIED 09/12/2017 GUILLERMO DELEON MD Ot I10 ESSENTIAL (PRIMARY) HYPERTENSION 09/12/2017 GUILLERMO DELEON MD Ot I25.10 ATHSCL HEART DISEASE OF [place] CORONARY 09/12/2017 ADRIENNE NOONAN, GUILLERMO Babcock Ot I65.23 OCCLUSION AND STENOSIS OF BILATERAL MARTINI 09/12/2017 ADRIENNE NOONAN, GUILLERMO Babcock Ot R07.9 CHEST PAIN, UNSPECIFIED 09/17/2017 JASMINE NOONAN, GENA M Ot R10.13 EPIGASTRIC PAIN 09/17/2017 JASMINE NOONAN, GENA M Ot Z01.818 ENCOUNTER FOR OTHER PREPROCEDURAL EXAMIN 09/17/2017 JASMINE NOONAN, GENA M Ot R10.13 EPIGASTRIC PAIN 09/17/2017 JASMINE NOONAN, GENA M Ot Z01.818 ENCOUNTER FOR OTHER PREPROCEDURAL EXAMIN 09/17/2017 JASMINE NOONAN, GENA M Ot R10.13 EPIGASTRIC PAIN 09/17/2017 JASMINE NOONAN, GENA M Ot Z01.818 ENCOUNTER FOR OTHER PREPROCEDURAL EXAMIN 09/18/2017 JASMINE NOONAN, GENA M Ot R10.13 EPIGASTRIC PAIN 09/18/2017 JASMINE NOONAN, GENA M Ot Z01.818 ENCOUNTER FOR OTHER PREPROCEDURAL EXAMIN 09/18/2017 TREE NOONAN, ZACK D Ot 530.5 DYSKINESIA OF ESOPHAGUS 09/18/2017 TREE NOONAN, ZACK D Ot 786.05 SHORTNESS OF BREATH 09/18/2017 TREE NOONAN, ZACK D Ot 786.50 CHEST PAIN NOS 09/18/2017 MORENITA MEJIA N QA TECH Ot R05 COUGH 09/21/2017 TREE NOONAN ZACK Annamarie Ot 530.5 DYSKINESIA OF ESOPHAGUS 09/21/2017 TREE NOONAN, ZACK D Ot 786.05 SHORTNESS OF BREATH 09/21/2017 TREE NOONAN, ZACK D Ot 786.50 CHEST PAIN NOS 09/21/2017 MORENITA MEJIA N QA TECH Ot R05 COUGH 09/21/2017 TREE NOONAN, ZACK D Ot 530.5 DYSKINESIA OF ESOPHAGUS 09/21/2017 TREE NOONAN ZACK D Ot 786.05 SHORTNESS OF BREATH 09/21/2017 TREE NOONAN, ZACK D Ot 786.50 CHEST PAIN NOS 09/21/2017 MORENITA MEJIA QA TECH Ot R05 COUGH 09/22/2017 PATRICK NOONAN FACC, ALI FACP CCDS Ot E66.9 OBESITY, UNSPECIFIED 09/22/2017 PATRICK NOONAN FACC, ALI FACP CCDS Ot E78.5 HYPERLIPIDEMIA, UNSPECIFIED 09/22/2017 PATRICK NOONAN FAC, ALI FACP CCDS Ot I10 ESSENTIAL (PRIMARY) HYPERTENSION 09/22/2017 PATRICK NOONAN FACC, ALI FACP CCDS Ot I25.10 ATHSCL HEART DISEASE OF [place] CORONARY 09/22/2017 PATRICK NOONAN FACC, ALI FACP CCDS Ot I65.23 OCCLUSION AND STENOSIS OF BILATERAL MARTINI 09/22/2017 PATRICK NOONAN FACC, ALI FACP CCDS Ot R73.09 OTHER ABNORMAL GLUCOSE 09/22/2017 PATRICK CARRERA, ALI FACP CCDS Ot Z68.31 BODY MASS INDEX (BMI) 31.0-31.9, ADULT 09/22/2017 PATRICK NOONAN FACC, ALI FACP CCDS Ot Z79.899 OTHER [facility] (CURRENT) DRUG THERAPY 09/22/2017 PATRICK NOONAN FACC, ALI FACP CCDS Ot Z95.5 PRESENCE OF CORONARY ANGIOPLASTY IMPLANT 09/22/2017 GENA FERRARO MD Ot I10 ESSENTIAL (PRIMARY) HYPERTENSION 09/22/2017 GENA FERRARO MD Ot I25.10 ATHSCL HEART DISEASE OF [place] CORONARY 09/22/2017 GENA FERRARO MD Ot K22.2 ESOPHAGEAL OBSTRUCTION 09/22/2017 GENA FERRARO MD Ot K29.70 GASTRITIS, UNSPECIFIED, WITHOUT BLEEDING 09/22/2017 GENA FERRARO MD Ot 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 09/22/2017 GENA FERRARO MD Ot Z95.5 PRESENCE OF CORONARY ANGIOPLASTY IMPLANT 09/25/2017 GENA FERRARO MD Ot K80.20 CALCULUS OF GALLBLADDER W/O CHOLECYSTITI 09/30/2017 GENA FERRARO MD Ot K80.20 CALCULUS OF GALLBLADDER W/O CHOLECYSTITI 10/01/2017 GENA FERRARO MD Ot I10 ESSENTIAL (PRIMARY) HYPERTENSION 10/01/2017 GENA FERRARO MD Ot I25.10 ATHSCL HEART DISEASE OF [place] CORONARY 10/01/2017 GENA FERRARO MD Ot K22.2 ESOPHAGEAL OBSTRUCTION 10/01/2017 GENA FERRARO MD Ot K29.70 GASTRITIS, UNSPECIFIED, WITHOUT BLEEDING 10/01/2017 GENA FERRARO MD Ot 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 Results Test [...] VLDL measurement (mass/volume) 12 mg/ dL 5-40 Automated blood complete blood count (hemogram) panel - 09/22/17 08:26 Blood leukocytes automated count (number/volume) 4.9 10*3/uL 4.3-11.0 Blood erythrocytes automated count (number/volume) 4.79 10*6/uL 4.35-5.85 Venous blood hemoglobin measurement (mass/volume) 15.3 g/dL 13.3-17.7 Blood hematocrit (volume fraction) 42 % 40-54 Automated erythrocyte mean corpuscular volume 88 [foz_us] 80-99 Automated erythrocyte mean corpuscular hemoglobin (mass per erythrocyte) 32 pg 25-34 Automated erythrocyte mean corpuscular hemoglobin concentration measurement ( mass/volume) 36 g/dL 32-36 Automated erythrocyte distribution width ratio 13.7 % 10.0-14.5 Automated blood platelet count (count/volume) 176 10*3/uL 130-400 Automated blood platelet mean volume measurement 10.3 [foz_us] 7.4-10.4 PT panel in platelet poor plasma by coagulation assay - 09/22/17 08:26 Prothrombin time (PT) in platelet poor plasma by coagulation assay 12.6 s 12.2-14.7 INR in platelet poor plasma or blood by coagulation assay 0.9 0.8-1.4 Activated partial thromboplastin time (aPTT) in platelet poor plasma bycoagulation assay - 09/22/17 08:26 Activated partial thromboplastin time (aPTT) in platelet poor plasma bycoagulation assay 29 s 24-35 Comprehensive metabolic panel - 09/22/17 08:26 Serum or plasma sodium measurement (moles/volume) 139 mmol/L 135-145 Serum or plasma potassium measurement (moles/volume) 3.5 mmol/L 3.6-5.0 Serum or plasma chloride measurement (moles/volume) 106 mmol/L 98-107 Carbon dioxide 21 mmol/L 21-32 Serum or plasma anion gap determination (moles/volume) 12 mmol/L 5-14 Serum or plasma urea nitrogen measurement (mass/volume) 19 mg/dL 7-18 Serum or plasma creatinine measurement (mass/volume) 0.96 mg/dL 0.60-1.30 Serum or plasma urea nitrogen/creatinine mass ratio 20 NRG Serum or plasma creatinine measurement with calculation of estimated glomerular filtration rate > NRG Serum or plasma glucose measurement (mass/volume) 115 mg/dL 70-105 Serum or plasma calcium measurement (mass/volume) 9.0 mg/dL 8.5-10.1 Serum or plasma total bilirubin measurement (mass/volume) 1.3 mg/dL 0.1-1.0 Serum or plasma alkaline phosphatase measurement (enzymatic activity/volume) 62 U/L 40-136 Serum or plasma aspartate aminotransferase measurement (enzymatic activity/ volume) 24 U/L 5-34 Serum or plasma alanine aminotransferase measurement (enzymatic activity/volume ) 35 U/L 0-55 Serum or plasma protein measurement (mass/volume) 6.8 g/dL 6.4-8.2 Serum or plasma albumin measurement (mass/volume) 4.0 g/dL 3.2-4.5 Lipid 1996 panel - 09/22/17 08:26 Serum or plasma triglyceride measurement (mass/volume) 54 mg/dL <150 Serum or plasma cholesterol measurement (mass/volume) 109 mg/dL < 200 Serum or plasma cholesterol in HDL measurement (mass/volume) 37 mg/ dL 40-60 Cholesterol in LDL [mass/volume] in serum or plasma by direct assay 58 mg/dL 1-129 Serum or plasma cholesterol in VLDL measurement (mass/volume) 11 mg/ dL 5-40 Methicillin resistant Staphylococcus aureus (MRSA) screening culture - 08:26 Methicillin resistant Staphylococcus aureus (MRSA) screening culture NEG NRG Encounters ACCT No. Visit Date/Time Discharge Status Pt. Type Provider Facility Loc./Unit Complaint [id number] 10/01/2017 05:41:00 10/01/2017 15:46:00 DIS Outpatient GENA FERRARO MD [facility] PREOP [place] [id number] 09/24/2017 08:01:00 09/24/2017 23:59:59 CLS Outpatient GENA FERRARO MD [facility] RAD RUQ PAIN [id number] 09/22/2017 07:58:00 09/22/2017 14:10:00 DIS Outpatient PATRICK NOONAN FACC, LISA CALDWELL CCDS [facility] CATH CHEST DISCOMFORT,CAD,CAROTID ARTERIAL DISEASE [id number] 09/21/2017 09:28:00 09/21/2017 14:20:00 DIS Outpatient GENA FERRARO MD [facility] ENDO EPIGASTRIC PAIN [id number] 09/17/2017 15:20:00 09/17/2017 15:24:00 DIS Outpatient GENA FERRARO MD [facility] PREOP EGD [id number] 09/11/2017 08:25:00 09/12/2017 10:30:00 DIS Inpatient GUILLERMO DELEON MD [facility] 4TH CHEST PAIN [id number] 09/09/2017 16:28:00 09/09/2017 23:59:59 CLS Preadmit REBECA MYERS [facility] CARD R07.89 CHEST DISCOMFORT [id number] 12/22/2016 20:40:00 12/24/2016 10:45:00 DIS Outpatient TIFFANIE PULLIAM MD [facility] CATH CHEST PAIN [id number] 11/17/2016 09:39:00 11/17/2016 23:59:59 CLS Outpatient MORENITA MEJIA APRN [facility] RAD COUGH [id number] 11/24/2013 04:48:00 11/24/2013 06:02:00 DIS Emergency ZEKE DO, MICHEAL Maravilla [facility] ER DIARRHEA X5 DAYS,LOW BLOOD PRESSURE [id number] 04/25/2013 10:42:00 04/25/2013 23:59:59 CLS Outpatient ZACK LEAVITT MD [facility] RAD CP,SOB [id number] 03/11/2013 07:30:00 03/11/2013 14:15:00 DIS Outpatient ANNE-MARIE NOONAN, ABHIJEET Riddle [facility] CATH CP [id number] 10/14/2012 08:57:00 10/14/2012 23:59:59 CLS Outpatient ZACK LEAVITT MD [facility] RAD DYSKINESIA OF ESOPHAGUS [id number] 10/05/2017 13:00:00 PEN Preadmit JASMINE NOONAN, GENA [facility]cock [facility] [place]
[2017-10-05] MEDS ORDERED: ceFAZolin INJECTION 1,000 MG in NS (IVPB) 50 ML IV ONE (11:45)
[2017-10-05] MEDS ORDERED: metroNIDAZOLE 500MG/100ML IVPB 100 ML IV ONE (11:45)
[2017-10-05] MEDS ORDERED: ceFAZolin 2 GM/50 ML PRE-MIX IVPB IV ONE (11:45)
[2017-10-05] MEDS ORDERED: fentaNYL INJECTION 100 MCG/2 ML AMP ONE (11:50)
[2017-10-05] MEDS ORDERED: LIDOCAINE PF 2% 5 ML (XYLOCAINE) VIAL ONE (11:50)
[2017-10-05] MEDS ORDERED: LACTATED RINGERS 0 ML IV ONE (11:50)
[2017-10-05] MEDS ORDERED: DEXAMETHASONE 10 MG/ML (DECADRON) 1 ML VIAL ONE (11:50)
[2017-10-05] MEDS ORDERED: ONDANSETRON 4 MG/2 ML (SDV) Z0FRAN ONE ×2 (11:50→15:35)
[2017-10-05] MEDS ORDERED: ROCURONIUM 10 MG/ML 5 ML SYRINGE IV ONE (11:50)
[2017-10-05] MEDS ORDERED: SEVOFLURANE (ULTANE) 15 ML INHAL SOLN ONE ×4 (11:50→15:17)
[2017-10-05] MEDS ORDERED: MIDAZOLAM 2 MG/2 ML (VERSED) VIAL ONE (11:50)
[2017-10-05] MEDS ORDERED: proPOfol 200 MG/20 ML (DIPRIVAN) VIAL IV ONE (11:50)
[2017-10-05 11:58] LABS: BASOPHILS % (AUTO) 0 % (0-10); EOSINOPHILS % (AUTO) 1 % (0-10); HEMATOCRIT 42 % (40-54); HEMOGLOBIN 15.4 G/DL (13.3-17.7); LYMPHOCYTES # (AUTO) 1.8 X 10^3 (1.0-4.0); LYMPHOCYTES % (AUTO) 37 % (12-44); MEAN CORPUSCULAR HEMOGLOBIN 32 PG (25-34); MEAN CORPUSCULAR HGB CONC 37 G/DL (32-36); MEAN CORPUSCULAR VOLUME 88 FL (80-99); MEAN PLATELET VOLUME 10.2 FL (7.4-10.4); MONOCYTES # (AUTO) 0.6 X 10^3 (0.0-1.0); MONOCYTES % (AUTO) 12 % (0-12); NEUTROPHILS # (AUTO) 2.5 X 10^3 (1.8-7.8); NEUTROPHILS % (AUTO) 51 % (42-75); PLATELET COUNT 176 10^3/uL (130-400); RED BLOOD COUNT 4.76 10^6/uL (4.35-5.85); RED CELL DISTRIBUTION WIDTH 14.1 % (10.0-14.5)
[2017-10-05 11:59] LABS: BASOPHILS % (AUTO) 0 % (0-10); EOSINOPHILS # (AUTO) 0.1 10^3/uL (0.0-0.3); EOSINOPHILS % (AUTO) 1 % (0-10); HEMATOCRIT 43 % (40-54); HEMOGLOBIN 15.5 G/DL (13.3-17.7); LYMPHOCYTES # (AUTO) 1.9 X 10^3 (1.0-4.0); LYMPHOCYTES % (AUTO) 37 % (12-44); MEAN CORPUSCULAR HEMOGLOBIN 32 PG (25-34); MEAN CORPUSCULAR HGB CONC 36 G/DL (32-36); MEAN CORPUSCULAR VOLUME 88 FL (80-99); MEAN PLATELET VOLUME 10.1 FL (7.4-10.4); MONOCYTES # (AUTO) 0.5 X 10^3 (0.0-1.0); MONOCYTES % (AUTO) 11 % (0-12); NEUTROPHILS # (AUTO) 2.6 X 10^3 (1.8-7.8); NEUTROPHILS % (AUTO) 51 % (42-75); PLATELET COUNT 183 10^3/uL (130-400); RED BLOOD COUNT 4.91 10^6/uL (4.35-5.85); RED CELL DISTRIBUTION WIDTH 14.2 % (10.0-14.5)
[2017-10-05] MEDS ORDERED: FAMOTIDINE 20MG/2ML IV (PEPCID) IVP ONE (12:00)
[2017-10-05] MEDS ORDERED: FAMOTIDINE 20MG/2ML IV (PEPCID) ONE (12:02)
[2017-10-05] MEDS: LACTATED RINGERS 1,000 ML IV PRN ×2 (12:20→14:34)
[2017-10-05] MEDS ORDERED: BUP/EPI 0.5% 1:200,000 (SENSORCAINE) 30 ML VIAL ONE (12:23)
--- NOTE | 2017-10-05 13:33 | Progress Note-Pre Operative ---
Pre-Operative Progress Note H&P Reviewed The H&P was reviewed, patient examined and no changes noted. Date Seen by Provider: September 28, 2017 Time Seen by Provider: 15:22 Date H&P Reviewed: October 05, 2017 Time H&P Reviewed: 13:33 Pre-Operative Diagnosis: Gallstone GENA FERRARO MD October 05, 2017 1:33 pm
--- NOTE | 2017-10-05 15:26 | Operative Report ---
Operative Report Date of Procedure/Surgery October 05, 2017 Surgeon (s) GENA FERRARO MD Air Vice Marshal (s): Charo Carlson (Med Student) Post-Operative Diagnosis Same Procedure Performed Robotic-assisted cholecystectomy Description of Procedure Anesthesia Type: General Estimated blood loss (mL): Minimal Specimen(s) collected/removed Gallbladder Description of the Procedure Indication for the procedure: Evaluation for epigastric pain and found a gallstone with slight elevation of bilirubin. He was offered cholecystectomy using minimally invasive technique with robotic assistance and possible cholangiogram to rule out choledocholithiasis. Informed consent was obtained after reviewing the operative details and complications of wound infection, bile leak and cardiorespiratory cardiorespiratory dysfunction. Description of procedure: He was placed supine on the operative table and general anesthesia induced. 2 g of Ancef and 500 mg of Flagyl were administered intravenously as prophylaxis against wound infection. Sequential compression devices were placed around his legs, to minimize the risk of venous thrombosis. Abdomen was then draped in the usual sterile manner. A supraumbilical incision was made and pneumoperitoneum established using a Veress needle. Intra- abdominal pressure was maintained at 15 mmHg, using carbon dioxide insufflation. A 12 mm trocar was placed and anatomy visualized using the high definition, conventional laparoscope associated with da Keith system. Under direct view, I placed an 8 mm trocar over each side of the abdomen, followed by a 5 mm trocar over the left upper quadrant . The patient was then turned into reverse Trendelenburg position with the right side tilted up. The robotic system was then in place. Omentum was wrapped around the body of the gallbladder, indicating chronic cholecystitis. The fundus was retracted cephalad and omentum taken down using the hook cautery. Subsequently, I was able to grasp the infundibulum using a pair of Cadiere forceps and begin dissection around Calot's angle using the hook cautery. Cystic duct and artery was delineated. I attempted cholangiogram by trying to cannulate the cystic duct. Since that could not be completed, further attempts were abandoned. The duct was then controlled using locking clips. This was followed by division of the cystic artery between locking clips. Cholecystectomy was then completed using the artery. Gallbladder was then placed in an Endo Catch bag and removed via the supra- umbilical trocar site. The fascia over this incision was closed using #1 Vicryl using the [place] To device, under direct laparoscopic view. Skin incisions were closed using 4-0 Vicryl, in a subcuticular fashion. 0.5 percent Marcaine with epinephrine was infiltrated along the incisions, both pre-emptively and at the conclusion of the operation He tolerated the procedure well, was extubated in the operating room and taken to the recovery room in a stable condition. Findings of the Procedure See op report Allergies and Home Medications Allergies Coded Allergies: No Known Drug Allergies (Unverified , 10/01/17) Home Medications Aspirin 81 Mg Tab.chew, 81 MG PO DAILY Prescribed by: LISA NGUYEN on 09/22/17 1114 Atorvastatin Calcium 40 Mg Tablet, 40 MG PO HS, (Reported) Clopidogrel Bisulfate 75 Mg Tablet, 75 MG PO DAILY, (Reported) Lisinopril/Hydrochlorothiazide 1 Each Tablet, 1 TAB PO DAILY, (Reported) Pantoprazole Sodium 40 Mg Tablet.dr, 40 MG PO DAILY, (Reported) Patient Home Medication List Home Medication List Reviewed: Yes GENA FERRARO MD October 05, 2017 3:26 pm
[2017-10-05] MEDS ORDERED: ACHD5005 PO (15:27)
--- NOTE | 2017-10-05 15:28 | Discharge Inst-Simple/Standard ---
Discharge Inst-Standard Discharge Medications New, Converted or Re-Newed RX: RX on Chart Patient Instructions/Follow Up Plan of Care/Instructions/FU: Band-Aids off in 48 hours. Incentive spirometry. Follow-up in 3 weeks Activity as Tolerated: Yes Discharge Diet: No Restrictions GENA FERRARO MD October 05, 2017 3:28 pm
[2017-10-05] MEDS ORDERED: morphine INJ 10 MG/ML 1ML (SYR OR VIAL) ONE (15:35)
[2017-10-05] MEDS ORDERED: HYDROmorphone 1 MG/ML (DILAUDID) 1 ML SYRINGE ONE (15:36)
[2017-10-05] MEDS: morphine INJ 10 MG/ML 1ML (SYR OR VIAL) IVP PRN ×2 (15:42→15:47)
[2017-10-05] MEDS ORDERED: ONDANSETRON 4 MG/2 ML (SDV) Z0FRAN IVP PRN (15:45)
[2017-10-05] MEDS: HYDROmorphone 1 MG/ML (DILAUDID) 1 ML SYRINGE IV PRN ×2 (15:50→16:00)
[2017-10-05] MEDS ORDERED: KETOROLAC 30 MG/ML VIAL ONE (15:52)
[2017-10-05] MEDS ORDERED: KETOROLAC 30 MG/ML VIAL IVP ONE (16:00)
[2017-10-05 16:30] VITALS: BP 173/91
[2017-10-05] MEDS ORDERED: HYDROcodone/APAP 5 MG/325 MG (LORTAB) TAB ONE ×2 (16:54→17:26)
--- NOTE | 2017-10-05 16:55 | Anesthesia-General Post-Op ---
General Patient Condition Mental Status/LOC: Same as Preop Cardiovascular: Satisfactory Nausea/Vomiting: Absent Respiratory: Satisfactory Pain: Uncontrolled Complications: Absent Post Op Complications Complications None Follow Up Care/Instructions Patient Instructions None needed. Anesthesia/Patient Condition Patient Condition Patient is doing fair, complains of pain 8/10 in his abdomen, stable vital signs , no apparent adverse anesthesia problems. Lela RN getting ready to give him pain medication PO; however, he is trying to eat crackers first so as to help prevent PONV. Will continue to monitor. As for other complications, patient denies. LEMUEL ALANIZ CRNA October 05, 2017 16:55
[2017-10-05] MEDS: HYDROcodone/APAP 5 MG/325 MG (LORTAB) TAB PO PRN ×2 (17:00→17:30)
[2017-10-05 17:15] VITALS: BP 184/90
[2017-10-05 18:00] VITALS: BP 177/74
[2017-10-05 18:55] VITALS: BP 177/74
== END 2017-10-05 18:55 | disposition home or self-care (01) ==
LOC: SDC 11:26
PROVIDERS: ATTEND Surgery
DX: K80.20 Calculus of gallbladder without cholecystitis without obstruction (principal); Z11.2 Encounter for screening for other bacterial diseases; Z79.899 Other long term (current) drug therapy; I10 Essential (primary) hypertension; I25.10 Atherosclerotic heart disease of native coronary artery without angina pectoris; E78.5 Hyperlipidemia, unspecified; Z95.5 Presence of coronary angioplasty implant and graft; K21.9 Gastro-esophageal reflux disease without esophagitis; Z79.82 Long term (current) use of aspirin; Z79.02 Long term (current) use of antithrombotics/antiplatelets
CPT/HCPCS: 36415; 85025; 87081; 88304

== ENCOUNTER 2018-01-06 03:27 | Emergency (ER) | payer MEDICARE ==
[~2018-01-06] VITALS: Ht 172.7 cm; Wt 89.8 kg
[~2018-01-06 03:27] MED LIST changes: +ACHD5005 PO
--- OUTSIDE RECORDS SUMMARY | 2018-01-06 03:32 | XMS REPORT | Continuity of Care Document ---
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 Family History History Response Recorded Date/Time Hx Family Cardiac Disorders Y BROTHER - OF ENLARGED HEART AGE 50 03/11/13 4:30am Social History History Response Recorded Date/Time Alcohol Use Denies Use 03/11/13 4:30am Recreational Drug Use N 03/11/13 4:30am Allergies, Adverse Reactions, Alerts Allergen Type Severity Reaction Last Updated No Known Drug Allergies 03/03/11 Medications Medication Dose Units Route Sig Qty Days Lisinopril (Zestril) 40 Mg PO DAILY Aspirin (Aspirin Ec 81 Mg) 81 Mg PO DAILY Dexlansoprazole (Dexilant) 60 Mg PO DAILY PRN Hydrochlorothiazide (Hctz) 25 Mg PO DAILY Nebivolol Hcl (Bystolic) 10 Mg PO DAILY Immunizations Name Given Type Date of Influenza Vaccine 03/11/13 H influenza, split (incl. purified surface antigen) 03/11/13 A influenza, split (incl. purified surface antigen) 03/11/13 A Response Recorded Date/Time Status not known Unknown Results No Known Relevant Diagnostic Tests, Laboratory Data and/or Discharge Summary. Procedures Procedure Code Date LESION REMOVE COLONOSCOPY 57803 10/08/09 UPPER GI ENDOSCOPY BIOPSY 64314 03/03/11 ESOPH ENDOSCOPY DILATION 27411 03/03/11
--- OUTSIDE RECORDS SUMMARY | 2018-01-06 03:32 | XMS REPORT | Continuity of Care Document ---
Author Author [facility] Organization [facility] Address Unknown Phone Unavailable Care Team Providers Care Die Finisher Forging Name Role Phone ZACK LEAVITT MD PP Insurance Providers Payer Name Policy Number Subscriber Name Relationship [facility] ([employer]) [id number] Ena De La Garza 01 Self / Same [...] Recorded Date/Time Status not known Unknown Results Test Date Result Interp. Ref. Range Activated Partial Thromboplast Time March 11, 2013 3:25am 29 SEC N 24-35 Alanine Aminotransferase (ALT/SGPT) March 11, 2013 3:25am 46 U/L N 30-65 Albumin March 11, 2013 3:25am 4.0 G/ DL N 3.4-5.0 Alkaline Phosphatase March 11, 2013 3:25am 84 U/L N 50-136 Aspartate Amino Transf (AST/SGOT) March 11, 2013 3:25am 19 U/L N 15-37 BUN/Creatinine Ratio March 11, 2013 3:25am 17 - Basophils # (Auto) March 11, 2013 3:25am 0.0 10^3/uL N 0.0-0.1 Basophils (%) (Auto) March 11, 2013 3:25am 0 % N 0-10 Blood Urea Nitrogen March 11, 2013 3:25am 19 MG/DL H 7-18 Calcium Level March 11, 2013 3:25am 8.9 MG/DL N 8.5-10.1 Carbon Dioxide Level March 11, 2013 3:25am 32 MMOL/L N 21-32 Chloride Level March 11, 2013 3:25am 100 MMOL/L L 101-110 Creatine Kinase MB March 11, 2013 3:25am 1.2 NG/ML N 0.0-3.6 Creatinine March 11, 2013 3:25am 1.1 MG/DL N 0.6-1.3 Eosinophils # (Auto) March 11, 2013 3:25am 0.2 10^3/uL N 0.0-0.3 Eosinophils (%) (Auto) March 11, 2013 3:25am 2 % N 0-10 Glucose Level March 11, 2013 3:25am 127 MG/DL H 74-106 Hematocrit March 11, 2013 3:25am 44 % N 40-54 Hemoglobin March 11, 2013 3:25am 15.8 G/DL N 13.3-17.7 Lymphocytes # (Auto) March 11, 2013 3:25am 3.7 X 10^3 N 1.0-4.0 Lymphocytes (%) (Auto) March 11, 2013 3:25am 47 % H 12-44 Magnesium Level March 11, 2013 3:25am 1.8 MG/DL N 1.8-2.4 Mean Corpuscular Hemoglobin March 11, 2013 3:25am 32 PG N 25-34 Mean Corpuscular Hemoglobin Concent March 11, 2013 3:25am 36 G/DL N 32-36 Mean Corpuscular Volume March 11, 2013 3:25am 88 FL N 80-99 Mean Platelet Volume March 11, 2013 3:25am 9.5 FL N 7.4-10.4 Monocytes # (Auto) March 11, 2013 3:25am 0.8 X 10^3 N 0.0-1.0 Monocytes (%) (Auto) March 11, 2013 3:25am 10 % N 0-12 Myoglobin March 11, 2013 3:25am 87 UG/ L N 10-92 Neutrophils # (Auto) March 11, 2013 3:25am 3.2 X 10^3 N 1.8-7.8 Neutrophils (%) (Auto) March 11, 2013 3:25am 41 % L 42-75 Platelet Count March 11, 2013 3:25am 202 10^3/uL N 130-400 Potassium Level March 11, 2013 3:25am 3.1 MMOL/L L 3.6-5.0 Prothrombin Time March 11, 2013 3:25am 12.2 SEC N 12.2-14.7 Red Blood Count March 11, 2013 3:25am 5.00 10^6/uL N 4.35-5.85 Red Cell Distribution Width March 11, 2013 3:25am 13.6 % N 10.0-14.5 Sodium Level March 11, 2013 3:25am 136 MMOL/L N 135-145 Total Bilirubin March 11, 2013 3:25am 0.7 MG/DL N 0.0-1.0 Total Creatine Kinase March 11, 2013 3:25am 135 U/L N 1-205 Total Protein March 11, 2013 3:25am 7.5 G/DL N 6.4-8.2 Troponin I March 11, 2013 3:25am < 0.10 NG/ML 0.00-0.10 White Blood Count March 11, 2013 3:25am 8.0 10^3/uL N 4.3-11.0 Estimat Glomerular Filtration Rate March 11, 2013 3:25am > 60 - INR Comment March 11, 2013 3:25am 0.9 N 0.8-1.4 Procedures Procedure Code Date LESION REMOVE COLONOSCOPY 96273 10/08/09 UPPER GI ENDOSCOPY BIOPSY 49009 03/03/11 ESOPH ENDOSCOPY DILATION 03257 03/03/11 Encounters Encounter Location Date/Time Discharged Inpatient [facility] 4:13am
[2018-01-06] MEDS ORDERED: LACTATED RINGERS 1,000 ML IV ONE ×2 (03:33→04:36)
--- OUTSIDE RECORDS SUMMARY | 2018-01-06 03:33 | XMS REPORT | Continuity of Care Document ---
Author Author [facility] Organization [facility] Address Unknown Phone Unavailable Allergies Active Description Code Type Severity Reaction Onset Reported/Identified Relationship to Patient Clinical Status Yes No Known Drug Allergies [id number] Drug Allergy Unknown N/A 10/01/2017 Medications There is no data. Problems Date Dx Coded Attending Type Code Diagnosis Diagnosed By 03/11/2013 ABHIJEET XIE MD Ot 272.4 HYPERLIPIDEMIA NEC/NOS 03/11/2013 ABHIJEET XIE MD Ot 276.8 HYPOPOTASSEMIA 03/11/2013 ABHIJEET XIE MD Ot 401.9 HYPERTENSION NOS 03/11/2013 ABHIJEET XIE MD Ot 414.01 CORONARY ATHEROSCLEROSIS OF [place] CORON 03/11/2013 ABHIJEET XIE MD Ot 427.89 [...] 786.50 CHEST PAIN NOS 12/12/2016 MORENITA MEJIA AUTOMOTIVE ARTIST Ot R05 COUGH 12/19/2016 MORENITA MEJIA APRN Ot R05 COUGH 12/24/2016 TIFFANIE PULLIAM MD Ot E78.5 HYPERLIPIDEMIA, UNSPECIFIED 12/24/2016 TIFFANIE PULLIAM MD Ot I10 ESSENTIAL (PRIMARY) HYPERTENSION 12/24/2016 TIFFANIE PULLIAM MD Ot I25.110 ATHSCL HEART DISEASE OF [place] COR ART W 12/24/2016 HERACLIO NOONAN, TIFFANIE Maravilla Ot R73.09 OTHER ABNORMAL GLUCOSE 12/24/2016 HERACLIO NOONAN, TIFFANIE Maravilla Ot 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 02/20/2017 TREE NOONAN ZACK D Ot 530.5 DYSKINESIA OF [place]HAG[place] 02/20/2017 TREE NOONAN ZACK D Ot 786.05 SHORTNESS OF BREATH 02/20/2017 TREE NOONAN ZACK D Ot 786.50 CHEST PAIN NOS 02/20/2017 MORENITA MEJIA AUTOMOTIVE ARTIST Ot R05 COUGH 02/20/2017 TREE NOONAN ZACK D Ot 530.5 DYSKINESIA OF ESOPHAGUS 02/20/2017 TREE NOONAN ZACK D Ot 786.05 SHORTNESS OF BREATH 02/20/2017 TREE NOONAN ZACK D Ot 786.50 CHEST PAIN NOS 02/20/2017 MORENITA MEJIA AUTOMOTIVE ARTIST Ot R05 COUGH 03/10/2017 TREE NOONAN ZACK D Ot 530.5 DYSKINESIA OF [place]HAGUS 03/10/2017 TREE NOONAN ZACK D Ot 786.05 SHORTNESS OF BREATH 03/10/2017 TREE NOONAN ZACK D Ot 786.50 CHEST PAIN NOS 03/10/2017 MORENITA MEJIA AUTOMOTIVE ARTIST Ot R05 COUGH 03/19/2017 TREE NOONAN ZACK D Ot 530.5 DYSKINESIA OF [place]HAGUS 03/19/2017 TREE NOONAN ZACK D Ot 786.05 SHORTNESS OF BREATH 03/19/2017 TREE NOONAN ZACK D Ot 786.50 CHEST PAIN NOS 03/19/2017 MORENITA MEJIA AUTOMOTIVE ARTIST Ot R05 COUGH 09/09/2017 TREE NOONAN ZACK D Ot 530.5 DYSKINESIA OF ES[place]HAGUS 09/09/2017 TREE NOONAN ZACK D Ot 786.05 SHORTNESS OF BREATH 09/09/2017 TREE NOONAN ZACK D Ot 786.50 CHEST PAIN NOS 09/09/2017 MORENITA MEJIA AUTOMOTIVE ARTIST Ot R05 COUGH 09/12/2017 GUILLERMO DELEON MD Ot E78.5 HYPERLIPIDEMIA, UNSPECIFIED 09/12/2017 GUILLERMO DELEON MD Ot I10 ESSENTIAL (PRIMARY) HYPERTENSION 09/12/2017 GUILLERMO DELEON MD Ot I25.10 ATHSCL HEART DISEASE OF [place] CORONARY 09/12/2017 ADRIENNE NOONAN, GUILLERMO Babcock Ot [...] 786.50 CHEST PAIN NOS 09/18/2017 MORENITA MEJIA AUTOMOTIVE ARTIST Ot R05 COUGH 09/21/2017 TREE NOONAN, ZACK Annamarie Ot 530.5 DYSKINESIA OF ESOPHAGUS 09/21/2017 TREE NOONAN, ZACK D Ot 786.05 SHORTNESS OF BREATH 09/21/2017 TREE NOONAN, ZACK D Ot 786.50 CHEST PAIN NOS 09/21/2017 MORENITA MEJIA N AUTOMOTIVE ARTIST Ot R05 COUGH 09/21/2017 TREE NOONAN, ZACK D Ot 530.5 DYSKINESIA OF ES[place]HAGUS 09/21/2017 TREE NOONAN, ZACK D Ot 786.05 SHORTNESS OF BREATH 09/21/2017 TREE NOONAN, ZACK D Ot 786.50 CHEST PAIN NOS 09/21/2017 MORENITA MEJIA AUTOMOTIVE ARTIST Ot R05 COUGH 09/21/2017 JASMINE NOONAN, GENA M Ot I10 ESSENTIAL (PRIMARY) HYPERTENSION 09/21/2017 JASMINE NOONAN, GENA M Ot I25.10 ATHSCL HEART DISEASE OF [place] CORONARY 09/21/2017 GENA FERRARO MD Ot K22.2 ESOPHAGEAL OBSTRUCTION 09/21/2017 GENA FERRARO MD Ot K29.70 GASTRITIS, UNSPECIFIED, WITHOUT BLEEDING 09/21/2017 GENA FERRARO MD Ot Z79.899 OTHER [facility] (CURRENT) DRUG THERAPY 09/21/2017 GENA FERRARO MD Ot Z95.5 PRESENCE OF CORONARY ANGIOPLASTY IMPLANT 09/22/2017 PATRICK NOONAN FACC, ALI FACP CCDS Ot E66.9 OBESITY, UNSPECIFIED 09/22/2017 PATRICK NOONAN FACC, ALI FACP CCDS Ot E78.5 HYPERLIPIDEMIA, UNSPECIFIED 09/22/2017 PATRICK NOONAN FACC, ALI FACP CCDS Ot I10 ESSENTIAL (PRIMARY) HYPERTENSION 09/22/2017 PATRICK NOONAN FACC, ALI FACP CCDS Ot I25.10 ATHSCL HEART DISEASE OF [place] CORONARY 09/22/2017 PATRICK NOONAN FACC, ALI FACP CCDS Ot I65.23 OCCLUSION AND STENOSIS OF BILATERAL [place] 09/22/2017 PATRICK NOONAN FACC, ALI FACP CCDS Ot R73.09 OTHER ABNORMAL GLUCOSE 09/22/2017 PATRICK NOONAN FACC, ALI FACP CCDS Ot Z68.31 BODY MASS INDEX (BMI) 31.0-31.9, ADULT 09/22/2017 PATRICK NOONAN FAC, ALI FACP CCDS Ot Z79.899 OTHER [facility] (CURRENT) DRUG THERAPY 09/22/2017 PATRICK NOONAN FAC, ALI FACP CCDS Ot Z95.5 PRESENCE OF CORONARY ANGIOPLASTY IMPLANT 09/22/2017 GENA FERRARO MD Ot I10 ESSENTIAL (PRIMARY) HYPERTENSION 09/22/2017 GENA FERRARO MD Ot I25.10 ATHSCL HEART DISEASE OF [place] CORONARY 09/22/2017 GENA FERRARO MD Ot K22.2 ESOPHAGEAL OBSTRUCTION 09/22/2017 GENA FERRARO MD, Ot K29.70 GASTRITIS, UNSPECIFIED, WITHOUT BLEEDING 09/22/2017 GENA FERRARO MD Ot Z79.899 OTHER [facility] (CURRENT) DRUG THERAPY 09/22/2017 GENA FERRARO MD Ot Z95.5 PRESENCE OF CORONARY ANGIOPLASTY IMPLANT 09/25/2017 GENA FERRARO MD Ot K80.20 CALCULUS OF GALLBLADDER W/O CHOLECYSTITI 09/30/2017 GENA FERRARO MD Ot K80.20 CALCULUS OF GALLBLADDER W/O CHOLECYSTITI 10/01/2017 GENA FERRARO MD Ot I10 ESSENTIAL (PRIMARY) HYPERTENSION 10/01/2017 GENA FERRARO MD Ot I25.10 ATHSCL HEART DISEASE OF [place] CORONARY 10/01/2017 GENA FERRARO MD Ot K22.2 ESOPHAGEAL OBSTRUCTION 10/01/2017 GENA FERRARO MD Ot K29.70 GASTRITIS, UNSPECIFIED, WITHOUT BLEEDING 10/01/2017 GENA FERRARO MD Ot Z79.899 OTHER [facility] (CURRENT) DRUG THERAPY 10/01/2017 GENA FERRARO MD Ot Z95.5 PRESENCE OF CORONARY ANGIOPLASTY IMPLANT 10/01/2017 GENA FERRARO MD Ot Z01.818 ENCOUNTER FOR OTHER PREPROCEDURAL EXAMIN 10/01/2017 GENA FERRARO MD Ot Z01.818 ENCOUNTER FOR OTHER PREPROCEDURAL EXAMIN 10/05/2017 GENA FERRARO MD Ot E78.5 HYPERLIPIDEMIA, UNSPECIFIED 10/05/2017 GENA FERRARO MD Ot I10 ESSENTIAL (PRIMARY) HYPERTENSION 10/05/2017 GENA FERRARO MD Ot I25.10 ATHSCL HEART DISEASE OF [place] CORONARY 10/05/2017 GENA FERRARO MD Ot K21.9 GASTRO-ESOPHAGEAL REFLUX DISEASE WITHOUT 10/05/2017 GENA FERRARO MD Ot K80.20 CALCULUS OF GALLBLADDER W/O CHOLECYSTITI 10/05/2017 GENA FERRARO MD Ot Z11.2 ENCOUNTER FOR SCREENING FOR OTHER BACTER 10/05/2017 GENA FERRARO MD Ot Z79.02 [facility] (CURRENT) USE OF ANTITHROMBOTI 10/05/2017 GENA FERRARO MD Ot 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 10/05/2017 GENA FERRARO MD Ot Z79.899 OTHER [facility] (CURRENT) DRUG THERAPY 10/05/2017 GENA FERRARO MD M Ot Z95.5 PRESENCE OF CORONARY ANGIOPLASTY IMPLANT 10/07/2017 GENA FERRARO MD Ot E78.5 HYPERLIPIDEMIA, UNSPECIFIED 10/07/2017 GENA FERRARO MD Ot I10 ESSENTIAL (PRIMARY) HYPERTENSION 10/07/2017 GENA FERRARO MD, Ot I25.10 ATHSCL HEART DISEASE OF [place] CORONARY 10/07/2017 GENA FERRARO MD, Ot K21.9 GASTRO-ESOPHAGEAL REFLUX DISEASE WITHOUT 10/07/2017 GENA FERRARO MD, Ot K80.20 CALCULUS OF GALLBLADDER W/O CHOLECYSTITI 10/07/2017 GENA FERRARO MD, Ot Z11.2 ENCOUNTER FOR SCREENING FOR OTHER BACTER 10/07/2017 GENA FERRARO MD, Ot 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 Results Test [...] resistant Staphylococcus aureus (MRSA) screening culture NEG NR Methicillin resistant Staphylococcus aureus (MRSA) screening culture - 11:43 Methicillin resistant Staphylococcus aureus (MRSA) screening culture NEG NR Complete blood count (CBC) with automated white blood cell (WBC) differential - 10/05/17 11:45 Blood leukocytes automated count (number/volume) 5.0 10*3/uL 4.3-11.0 Blood erythrocytes automated count (number/volume) 4.76 10*6/uL 4.35-5.85 Venous blood hemoglobin measurement (mass/volume) 15.4 g/dL 13.3-17.7 Blood hematocrit (volume fraction) 42 % 40-54 Automated erythrocyte mean corpuscular volume 88 [foz_us] 80-99 Automated erythrocyte mean corpuscular hemoglobin (mass per erythrocyte) 32 pg 25-34 Automated erythrocyte mean corpuscular hemoglobin concentration measurement ( mass/volume) 37 g/dL 32-36 Automated erythrocyte distribution width ratio 14.1 % 10.0-14.5 Automated blood platelet count (count/volume) 176 10*3/uL 130-400 Automated blood platelet mean volume measurement 10.2 [foz_us] 7.4-10.4 Automated blood neutrophils/100 leukocytes 51 % 42-75 Automated blood lymphocytes/100 leukocytes 37 % 12-44 Blood monocytes/100 leukocytes 12 % 0-12 Automated blood eosinophils/100 leukocytes 1 % 0-10 Automated blood basophils/100 leukocytes 0 % 0-10 Blood neutrophils automated count (number/volume) 2.5 10*3 1.8-7.8 Blood lymphocytes automated count (number/volume) 1.8 10*3 1.0-4.0 Blood monocytes automated count (number/volume) 0.6 10*3 0.0-1.0 Automated eosinophil count 0.0 10*3/uL 0.0-0.3 Automated blood basophil count (count/volume) 0.0 10*3/uL 0.0-0.1 Complete blood count (CBC) with automated white blood cell (WBC) differential - 10/05/17 11:45 Blood leukocytes automated count (number/volume) 5.0 10*3/uL 4.3-11.0 Blood erythrocytes automated count (number/volume) 4.91 10*6/uL 4.35-5.85 Venous blood hemoglobin measurement (mass/volume) 15.5 g/dL 13.3-17.7 Blood hematocrit (volume fraction) 43 % 40-54 Automated erythrocyte mean corpuscular volume 88 [foz_us] 80-99 Automated erythrocyte mean corpuscular hemoglobin (mass per erythrocyte) 32 pg 25-34 Automated erythrocyte mean corpuscular hemoglobin concentration measurement ( mass/volume) 36 g/dL 32-36 Automated erythrocyte distribution width ratio 14.2 % 10.0-14.5 Automated blood platelet count (count/volume) 183 10*3/uL 130-400 Automated blood platelet mean volume measurement 10.1 [foz_us] 7.4-10.4 Automated blood neutrophils/100 leukocytes 51 % 42-75 Automated blood lymphocytes/100 leukocytes 37 % 12-44 Blood monocytes/100 leukocytes 11 % 0-12 Automated blood eosinophils/100 leukocytes 1 % 0-10 Automated blood basophils/100 leukocytes 0 % 0-10 Blood neutrophils automated count (number/volume) 2.6 10*3 1.8-7.8 Blood lymphocytes automated count (number/volume) 1.9 10*3 1.0-4.0 Blood monocytes automated count (number/volume) 0.5 10*3 0.0-1.0 Automated eosinophil count 0.1 10*3/uL 0.0-0.3 Automated blood basophil count (count/volume) 0.0 10*3/uL 0.0-0.1 Encounters ACCT No. Visit Date/Time Discharge Status Pt. Type Provider Facility Loc./Unit Complaint [id number] 10/05/2017 11:26:00 10/05/2017 18:55:00 DIS Outpatient GENA FERRARO MD [facility] SDC [place] [id number] 10/01/2017 05:41:00 10/01/2017 15:46:00 DIS Outpatient GENA FERRARO MD [facility] PREOP [place] [id number] 09/24/2017 08:01:00 09/24/2017 23:59:59 CLS Outpatient GENA FERRARO MD [facility] RAD RUQ PAIN [id number] 09/22/2017 07:58:00 09/22/2017 14:10:00 DIS Outpatient PATRICK NOONAN FACCLISA FACP CCDS [facility] CATH CHEST DISCOMFORT,CAD,CAROTID ARTERIAL DISEASE [id number] 09/21/2017 09:28:00 09/21/2017 14:20:00 DIS Outpatient GENA FERRARO MD [facility] ENDO EPIGASTRIC PAIN [id number] 09/17/2017 15:20:00 09/17/2017 15:24:00 DIS Outpatient GENA FERRARO MD [facility] PREOP EGD [id number] 09/11/2017 08:25:00 09/12/2017 10:30:00 DIS Inpatient GUILLERMO DELEON MD [facility] 4TH CHEST PAIN [id number] 09/09/2017 16:28:00 09/09/2017 23:59:59 CLS Preadmit REBECA MYERS [facility] CARD R07.89 CHEST DISCOMFORT [id number] 12/22/2016 20:40:00 12/24/2016 10:45:00 DIS Outpatient TIFFANIE PULLIAM MD [facility] CHEST PAIN [id number] 11/17/2016 09:39:00 11/17/2016 23:59:59 CLS Outpatient MORENITA MEJIA TOMASZ [facility] RAD COUGH [id number] 11/24/2013 04:48:00 11/24/2013 06:02:00 DIS Emergency ZEKE DO, MICHEAL Maravilla [facility] ER DIARRHEA X5 DAYS,LOW BLOOD PRESSURE [id number] 04/25/2013 10:42:00 04/25/2013 23:59:59 CLS Outpatient ZACK LEAVITT MD [facility] RAD CP,SOB [id number] 03/11/2013 07:30:00 03/11/2013 14:15:00 DIS Outpatient ABHIJEET XIE MD [facility] CATH CP [id number] 10/14/2012 08:57:00 10/14/2012 23:59:59 CLS Outpatient ZACK LEAVITT MD [facility] RAD DYSKINESIA OF ESOPHAGUS
[2018-01-06] MEDS ORDERED: ONDA4TAB8 SL (03:40)
--- NOTE | 2018-01-06 03:55 | ED GI ---
General Chief Complaint: Abdominal/GI Problems Stated Complaint: DIARRHEA Nursing Triage Note: N/V/D Sepsis Screen: No Definite Risk Source of Information: Patient Exam Limitations: No Limitations History of Present Illness Date Seen by Provider: Jan 06, 2018 Time Seen by Provider: 03:33 Initial Comments PT ARRIVES VIA POV FROM HOME C/O NAUSEA/VOMITING/DIARRHEA X 3 DAYS SYMPTOMS BEGAN WHILE HE WAS IN [place], LEFT [place] AT 1800, TO [place], AND JUST GOT BACK HOME AT 0230, AND CAME HERE HAS HAD DIARRHEA X 3-4 TODAY. NO BLACK/BLOODY/TARRY STOOLS. HAS BEEN INCONTINENT OF DIARRHEA--STATES IT COMES ON WITHOUT WARNING--STATES HE IS HAVING DIARRHEA EVEN WHEN HE SLEEPS AND HAS BEEN WEARING DISPOSABLE BRIEFS UNDERWEAR VOMITED "A BUNCH" YESTERDAY, "VERY LITTLE" TODAY HAS HAD DECREASED URINE OUTPUT STATES HE IS NOT EATING OR DRINKING MUCH AT ALL, BUT IS KEEPING WATER DOWN, BUT STATES "IT GOES RIGHT THROUGH ME" NO KNOWN FEVER, BUT HAS HAD CHILLS C/O GENERALIZED WEAKNESS,AND FELT LIKE HE MIGHT PASS OUT YESTERDAY--GOT HOT AND SWEATY JUST BEFORE THAT. O ABDOMINAL PAIN NO KNOWN SICK CONTACTS OR SUSPICIOUS FOODS NO HISTORY OF GI PROBLEMS RX CALLED IN YESTERDAY 01/05/[address] LEAVITT--WHILE IN [place]. [facility] DR[facility] Allergies and Home Medications Allergies Coded Allergies: No Known Drug Allergies (Unverified , 10/01/17) Home Medications Aspirin 81 Mg Tab.chew, 81 MG PO DAILY Prescribed by: LISA NGUYEN on 09/22/17 1114 Atorvastatin Calcium 40 Mg Tablet, 40 MG PO HS, (Reported) Clopidogrel Bisulfate 75 Mg Tablet, 75 MG PO DAILY, (Reported) Hydrocodone Bit/Acetaminophen 1 Tab Tab, 1-2 TAB PO 4-6HR PRN for PAIN Prescribed by: GENA FERRARO on 10/05/17 1527 Lactobacillus Acidophilus 1 Each Capsule, 2 EACH PO QID Prescribed by: MICHEAL ALANIS on 01/06/18 0536 Lisinopril/Hydrochlorothiazide 1 Each Tablet, 1 TAB PO DAILY, (Reported) Loperamide HCl 2 Mg Capsule, 2 MG PO Q4H Prescribed by: MICHEAL ALANIS on 01/06/18 0536 Ondansetron 4 Mg Tab.rapdis, 4 MG SL Q4H PRN for NAUSEA/VOMITING-1ST LINE, ( Reported) Pantoprazole Sodium 40 Mg Tablet.dr, 40 MG PO DAILY, (Reported) Patient Home Medication List Home Medication List Reviewed: Yes Review of Systems Constitutional: see HPI; No chills, No diaphoresis, No dizziness, No fever; malaise, weakness EENTM: No Symptoms Reported Respiratory: No Symptoms Reported Cardiovascular: No Symptoms Reported Gastrointestinal: See HPI; Denies Abdominal Pain; Diarrhea, Nausea, Poor Appetite, Poor Fluid Intake, Vomiting Genitourinary: See HPI; Denies Burning, Denies Flank Pain Musculoskeletal: no symptoms reported Skin: no symptoms reported Psychiatric/Neurological: No Symptoms Reported Endocrine: No Symptoms Reported Hematologic/Lymphatic: No Symptoms Reported Past Nswslaf-Xkyprk-Glgjkt Hx Patient Social History Alcohol Use: Denies Use Recreational Drug Use: No Smoking Status: Never a Smoker 2nd Hand Smoke Exposure: No Recent Foreign Travel: No Contact w/Someone Who Travel: No Recent Infectious Disease Expo: No Recent Hopitalizations: No Immunizations Up To Date Tetanus Booster (TDap): More than 5yrs Date of Influenza Vaccine: Mar 11, 2017 Seasonal Allergies Seasonal Allergies: No Past Medical History Surgeries: Yes (COMPOUND FX/ORIF; CARDIAC CATHS WITH STENT X 1--LAST CATH 06/11--PATENT STENT/NO INTERVENTION; EGD WITH ESOPHAGEAL DILATION) Cardiac, Coronary Stent, Gallbladder, Orthopedic Respiratory: No Cardiac: Yes Coronary Artery Disease, Hypertension Neurological: No Reproductive Disorders: No Sexually Transmitted Disease: No HIV/AIDS: No Genitourinary: No Gastrointestinal: Yes (esophageal stricture with dilation) Gastroesophageal Reflux Musculoskeletal: Yes Fractures Endocrine: No HEENT: No Loss of Vision: Denies Hearing Impairment: Denies Cancer: No Psychosocial: No Integumentary: No Blood Disorders: No Adverse Reaction/Blood Tranf: No (N/A) Family Medical History Diabetes, Hypertension Physical Exam Vital Signs Vital Signs - First Documented 01/06/18 03:30 Temp 97.8 Pulse 90 Resp 16 B/P (MAP) 128/84 (99) Pulse Ox 99 O2 Delivery Room Air Capillary Refill : Less Than 3 Seconds Height/Weight/BMI Height: 5'8.00" Weight: 198lbs. 0.0oz. 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, no motor/sensory deficits, alert, normal mood/affect, oriented x 3 Skin: normal color, warm/dry Progress/Results/Core Measures Results/Orders Lab Results Laboratory Tests Test 01/06/18 03:40 01/06/18 03:45 Range/Units Urine Color YELLOW Urine Clarity CLEAR Urine pH 5 5-9 Urine Specific [place] 1.020 1.016-1.022 Urine Protein 1+ H NEGATIVE Urine Glucose (UA) NEGATIVE NEGATIVE Urine Ketones NEGATIVE NEGATIVE Urine Nitrite NEGATIVE NEGATIVE Urine Bilirubin 1+ H NEGATIVE Urine Urobilinogen NORMAL NORMAL MG/DL Urine Leukocyte Esterase 1+ H NEGATIVE Urine RBC (Auto) NEGATIVE NEGATIVE Urine RBC NONE /HPF Urine WBC RARE /HPF Urine Squamous Epithelial Cells 0-2 /HPF Urine Crystals NONE /LPF Urine Bacteria TRACE /HPF Urine Casts PRESENT /LPF Urine Hyaline Casts 5-10 H /LPF Urine Mucus LARGE H /LPF Urine Culture Indicated NO White Blood Count 6.0 4.3-11.0 10^3/uL Red Blood Count 5.76 4.35-5.85 10^6/uL Hemoglobin 18.2 H 13.3-17.7 G/DL Hematocrit 49 40-54 % Mean Corpuscular Volume 85 80-99 FL Mean Corpuscular Hemoglobin 32 25-34 PG Mean Corpuscular Hemoglobin Concent 37 H 32-36 G/DL Red Cell Distribution Width 14.6 H 10.0-14.5 % Platelet Count 261 130-400 10^3/uL Mean Platelet Volume 10.0 7.4-10.4 FL Neutrophils (%) (Auto) 45 42-75 % Lymphocytes (%) (Auto) 30 12-44 % Monocytes (%) (Auto) 23 H 0-12 % Eosinophils (%) (Auto) 2 0-10 % Basophils (%) (Auto) 1 0-10 % Neutrophils # (Auto) 2.7 1.8-7.8 X 10^3 Lymphocytes # (Auto) 1.8 1.0-4.0 X 10^3 Monocytes # (Auto) 1.4 H 0.0-1.0 X 10^3 Eosinophils # (Auto) 0.1 0.0-0.3 10^3/uL Basophils # (Auto) 0.0 0.0-0.1 10^3/uL Neutrophils % (Manual) 37 % Lymphocytes % (Manual) 27 % Monocytes % (Manual) 25 % Eosinophils % (Manual) 3 % Band Neutrophils 8 % Blood Morphology Comment NORMAL Sodium Level 134 L 135-145 MMOL/L Potassium Level 4.5 3.6-5.0 MMOL/L Chloride Level 107 98-107 MMOL/L Carbon Dioxide Level 13 L 21-32 MMOL/L Anion Gap 14 5-14 MMOL/L Blood Urea Nitrogen 32 H 7-18 MG/DL Creatinine 1.46 H 0.60-1.30 MG/DL Estimat Glomerular Filtration Rate 48 BUN/Creatinine Ratio 22 Glucose Level 146 H 70-105 MG/DL Calcium Level 9.0 8.5-10.1 MG/DL Corrected Calcium 8.9 8.5-10.1 MG/DL Magnesium Level 2.5 H 1.8-2.4 MG/DL Total Bilirubin 1.4 H 0.1-1.0 MG/DL Aspartate Amino Transf (AST/SGOT) 24 5-34 U/L Alanine Aminotransferase (ALT/SGPT) 34 0-55 U/L Alkaline Phosphatase 109 40-136 U/L Total Protein 7.5 6.4-8.2 GM/DL Albumin 4.1 3.2-4.5 GM/DL Amylase Level 47 25-125 U/L Lipase 22 8-78 U/L My Orders Orders - ZEKESANTAA K DO Saline Lock/Iv-Start (01/06/18 03:33) Amylase (01/06/18 03:33) Cbc With Automated Diff (01/06/18 03:33) Comprehensive Metabolic Panel (01/06/18 03:33) Lipase (01/06/18 03:33) Magnesium (01/06/18 03:33) Ua Culture If Indicated (01/06/18 03:33) Saline Lock/Iv-Start (01/06/18 03:33) Lactated Ringers (Lr 1000 Ml Iv Solution (01/06/18 03:33) Ondansetron Injection (Zofran Injectio (01/06/18 04:00) Stool Culture (01/06/18 03:48) Fecal Wbc (01/06/18 03:48) C Difficile Ag + Toxin A/B. (01/06/18 03:48) Isolation Central Supply Req (01/06/18 03:48) Manual Differential (01/06/18 03:45) Ondansetron Injection (Zofran Injectio (01/06/18 04:45) Saline Lock/Iv-Start (01/06/18 04:36) Lactated Ringers (Lr 1000 Ml Iv Solution (01/06/18 04:36) Loperamide Capsule (Imodium Capsule) (01/06/18 04:39) Medications Given in ED Current Medications Medications Dose Ordered Sig/Kayleigh Route Start Time Stop Time Status Last Admin Dose Admin Lactated Ringer's 1,000 ml @ 0 mls/hr Q0M ONCE IV 01/06/18 03:33 01/06/18 03:36 DC 01/06/18 03:52 0 MLS/HR Lactated Ringer's 1,000 ml @ 0 mls/hr Q0M ONCE IV 01/06/18 04:36 01/06/18 04:38 DC 01/06/18 04:50 0 MLS/HR Loperamide HCl 2 mg STK-MED ONCE .ROUTE 01/06/18 04:39 01/06/18 04:42 DC 01/06/18 04:45 2 MG Ondansetron HCl 8 mg ONCE ONCE IVP 01/06/18 04:00 01/06/18 04:01 DC 01/06/18 03:54 8 MG Ondansetron HCl 8 mg ONCE ONCE IVP 01/06/18 04:45 01/06/18 04:46 DC 01/06/18 04:50 8 MG Vital Signs/I&O 01/06/18 03:30 Temp 97.8 Pulse 90 Resp 16 B/P (MAP) 128/84 (99) Pulse Ox 99 O2 Delivery Room Air Blood Pressure Mean: 99 Progress Progress Note : Progress Note NO VOMITING DURING ER STAY--PT KEEPING WATER DOWN, AND VOIDED X 2 DURING ER STAY WAS INCONTINENT OF DIARRHEA X 1 IN ER--STATES HE DOZED OFF, AND HAD DIARRHEA WHILE HE WAS ASLEEP. HAD AT LEAST 3 STOOLS DURING ER STAY Departure Impression Primary Impression: Gastroenteritis Additional Impression: Dehydration Disposition: 01 HOME, SELF-CARE Condition: Improved Departure-Patient Inst. Referrals: ZACK LEAVITT MD (PCP/Family) Primary Care Physician Patient Instructions: Dehydration, Adult (DC), [id number], Viral Gastroenteritis, Adult (DC) Add. Discharge Instructions: CLEAR LIQUIDS-WATER, BROTH, JELLO, GATORADE--DRINK ENOUGH SO YOU ARE URINATING EVERY 2-3 HOURS WHILE AWAKE BRATS DIET--BANANAS, RICE, APPLESAUCE, TOAST, SALTINES TAKE YOUR ZOFRAN NEEDED FOR NAUSEA FOLLOW UP WITH DR. POWELL TOMORROW FOR FURTHER CARE RETURN TO ER IF WORSE All discharge instructions reviewed with patient and/or family. Voiced understanding. Scripts Loperamide HCl (Loperamide) 2 Mg Capsule 2 MG PO Q4H for Diarrhea, #10 CAP Prov: MICHEAL ALANIS DO 01/06/18 Lactobacillus Acidophilus (Acidophilus) 1 Each Capsule 2 EACH PO QID, #80 CAP Prov: MICHEAL ALANIS DO 01/06/18 MICHEAL ALANIS DO Jan 06, 2018 03:55
[2018-01-06 04:00] LABS: BASOPHILS % (AUTO) 1 % (0-10); EOSINOPHILS # (AUTO) 0.1 10^3/uL (0.0-0.3); EOSINOPHILS % (AUTO) 2 % (0-10); HEMATOCRIT 49 % (40-54); HEMOGLOBIN 18.2 G/DL (13.3-17.7); LYMPHOCYTES # (AUTO) 1.8 X 10^3 (1.0-4.0); LYMPHOCYTES % (AUTO) 30 % (12-44); MEAN CORPUSCULAR HEMOGLOBIN 32 PG (25-34); MEAN CORPUSCULAR HGB CONC 37 G/DL (32-36); MEAN CORPUSCULAR VOLUME 85 FL (80-99); MONOCYTES # (AUTO) 1.4 X 10^3 (0.0-1.0); MONOCYTES % (AUTO) 23 % (0-12); NEUTROPHILS # (AUTO) 2.7 X 10^3 (1.8-7.8); NEUTROPHILS % (AUTO) 45 % (42-75); PLATELET COUNT 261 10^3/uL (130-400); RED BLOOD COUNT 5.76 10^6/uL (4.35-5.85); RED CELL DISTRIBUTION WIDTH 14.6 % (10.0-14.5)
[2018-01-06] MEDS ORDERED: ONDANSETRON 4 MG/2 ML (SDV) Z0FRAN IVP ONE ×2 (04:00→04:45)
[2018-01-06 04:01] LABS: CLARITY,URINE CLEAR; COLOR,URINE YELLOW; GLUCOSE, URINE (UA) NEGATIVE (NEGATIVE); KETONES,URINE NEGATIVE (NEGATIVE); LEUKOCYTE ESTERASE ,URINE 1+ (NEGATIVE); NITRITE,URINE NEGATIVE (NEGATIVE); PH,URINE 5 (5-9); PROTEIN,URINE 1+ (NEGATIVE); UROBILINOGEN,URINE NORMAL (NORMAL)
[2018-01-06 04:14] LABS: BACTERIA,URINE TRACE /HPF; BILIRUBIN,URINE 1+ (NEGATIVE); WBC,URINE RARE /HPF
[2018-01-06 04:15] LABS: SQUAMOUS EPITHELIAL CELL,UR 0-2 /HPF
[2018-01-06 04:19] LABS: ALBUMIN 4.1 GM/DL (3.2-4.5); BILIRUBIN,TOTAL 1.4 MG/DL (0.1-1.0); CREATININE SERUM 1.46 MG/DL (0.60-1.30); MAGNESIUM 2.5 MG/DL (1.8-2.4); POTASSIUM 4.5 MMOL/L (3.6-5.0); TOTAL PROTEIN 7.5 GM/DL (6.4-8.2)
[2018-01-06 04:22] LABS: BAND NEUTROPHILS 8 %; EOSINOPHILS % (MANUAL) 3 %; LYMPHOCYTES % (MANUAL) 27 %; MONOCYTES % (MANUAL) 25 %; NEUTROPHILS % (MANUAL) 37 %; RBC MORPH NORMAL
[2018-01-06] MEDS ORDERED: LOPERAMIDE 2 MG (IMODIUM) CAP ONE (04:39)
[2018-01-06] MEDS ORDERED: LOPE2CAP PO (05:36)
[2018-01-06] MEDS ORDERED: LACT1CAP8 PO (05:36)
[2018-01-06 05:57] VITALS: BP 141/73
== END 2018-01-06 05:57 | disposition home or self-care (01) ==
LOC: EDUNIT# 03:27 → ER 03:28
DX: K52.9 Noninfective gastroenteritis and colitis, unspecified (principal); E86.0 Dehydration; I25.10 Atherosclerotic heart disease of native coronary artery without angina pectoris; I10 Essential (primary) hypertension; K21.9 Gastro-esophageal reflux disease without esophagitis; Z79.82 Long term (current) use of aspirin; Z79.52 Long term (current) use of systemic steroids; Z95.5 Presence of coronary angioplasty implant and graft
CPT/HCPCS: 36415; 80053; 81000; 82150; 83690; 83735; 85007; 85027; 87045; 87046; 87324; 87449; 89055

== ENCOUNTER 2018-01-06 16:27 | Outpatient (CLI) | payer MEDICARE ==
[~2018-01-06] VITALS: Ht 172.7 cm; Wt 88.5 kg
[~2018-01-06 16:27] MED LIST changes: +LACT1CAP8 PO; +LOPE2CAP PO; +ONDA4TAB8 SL
[2018-01-06 16:55] VITALS: BP 154/78
[2018-01-06] MEDS: LACTATED RINGERS 1,000 ML IV SCH ×2 (16:55→17:50)
[2018-01-06 19:03] VITALS: BP 154/78
== END 2018-01-06 19:00 | disposition home or self-care (01) ==
LOC: SDC 16:27
PROVIDERS: ATTEND Nurse Practitioner Family
DX: E86.0 Dehydration (principal); R11.2 Nausea with vomiting, unspecified; R19.7 Diarrhea, unspecified
CPT/HCPCS: 96360; 96361

== ENCOUNTER 2019-08-05 08:47 | Emergency (ER) | payer MEDICARE ==
[~2019-08-05] VITALS: Ht 172 cm; Wt 99.7 kg
[~2019-08-05 08:47] MED LIST changes: -LISI1TAB10 PO; +LISI1TAB26 PO
[2019-08-05] MEDS ORDERED: ONDANSETRON 4 MG (ZOFRAN) ORAL DISSOLVE TAB SL ONE (09:00)
[2019-08-05] MEDS ORDERED: ONDA4TAB11 SL (10:35)
--- NOTE | 2019-08-05 10:35 | ED Neurological Problem ---
General Chief Complaint: Dizziness/Syncope Stated Complaint: DIZZINESS Nursing Triage Note: Patient ambulatory to ER with spouse with complaint of dizziness with nausea that began this morning. Patient states his dizziness gets worse with lying down. he has felt generealized weakness today. Patient denies any chest pain, shortness of breath, or flu-like symptoms. Nursing Sepsis Screen: No Definite Risk Source: patient Exam Limitations: no limitations History of Present Illness Date Seen by Provider: Aug 05, 2019 Time Seen by Provider: 08:49 Initial Comments This 68-year-old woman presents to the emergency room with complaints of sudden onset of dizziness accompanied by nausea and vomiting this morning. Symptoms are worse when lying down and better when he sits up. He denies any focal ne urologic deficits. He is able to ambulate independently and safely. He is still nauseous at present. He denies any other acute illnesses recently. He had blood work and a physical exam with Dr. Leavitt within the past week and states both were normal. He generally feels weak at present. He denies any chest pain or shortness of breath. Allergies and Home Medications Allergies Coded Allergies: No Known Drug Allergies (Unverified , 10/01/17) Home Medications Aspirin 81 Mg Tab.chew, 81 MG PO DAILY Prescribed by: LISA NGUYEN on 09/22/17 1114 Atorvastatin Calcium 40 Mg Tablet, 40 MG PO HS, (Reported) Clopidogrel Bisulfate 75 Mg Tablet, 75 MG PO DAILY, (Reported) Hydrocodone Bit/Acetaminophen 1 Tab Tab, 1-2 TAB PO 4-6HR PRN for PAIN Prescribed by: GENA FERRARO on 10/05/17 1527 Lactobacillus Acidophilus 1 Each Capsule, 2 EACH PO QID Prescribed by: MICHEAL ALANIS on 01/06/18 0536 Lisinopril/Hydrochlorothiazide 1 Each Tablet, 1 TAB PO DAILY, (Reported) Loperamide HCl 2 Mg Capsule, 2 MG PO Q4H Prescribed by: MICHEAL ALANIS on 01/06/18 0536 Ondansetron 4 Mg Tab.rapdis, 4 MG SL Q4H PRN for NAUSEA/VOMITING-1ST LINE, (Reported) Ondansetron 4 Mg Tab.rapdis, 4 MG SL Q4H PRN for NAUSEA/VOMITING Prescribed by: JYAMIE HARTLEY on 08/05/19 1035 Pantoprazole Sodium 40 Mg Tablet.dr, 40 MG PO DAILY, (Reported) Patient Home Medication List Home Medication List Reviewed: Yes Review of Systems Review of Systems Constitutional: see HPI Eyes: No Symptoms Reported Ears, Nose, Mouth, Throat: no symptoms reported Respiratory: no symptoms reported Cardiovascular: no symptoms reported Gastrointestinal: see HPI Genitourinary: no symptoms reported Musculoskeletal: no symptoms reported Skin: no symptoms reported Psychiatric/Neurological: See HPI Endocrine: No Symptoms Reported Hematologic/Lymphatic: No Symptoms Reported Past Avgmiak-Olgcfx-Zfuamn Hx Past Med/Social Hx: Reviewed Nursing Past Med/Soc Hx Patient Social History Alcohol Use: Denies Use Recreational Drug Use: No Smoking Status: Never a Smoker 2nd Hand Smoke Exposure: No Recent Foreign Travel: No Contact w/Someone Who Travel: No Recent Infectious Disease Expo: No Recent Hopitalizations: No Physical Abuse: No Sexual Abuse: No Mistreated: No Fear: No Immunizations Up To Date Tetanus Booster (TDap): More than 5yrs Date of Influenza Vaccine: Mar 11, 2017 Seasonal Allergies Seasonal Allergies: No Past Medical History Surgeries: Yes Cardiac, Coronary Stent, Gallbladder, Orthopedic Respiratory: No Cardiac: Yes Coronary Artery Disease, Hypertension Neurological: No Reproductive Disorders: No Sexually Transmitted Disease: No HIV/AIDS: No Genitourinary: No Gastrointestinal: Yes (esophageal stricture with dilation) Gastroesophageal Reflux Musculoskeletal: Yes Fractures Endocrine: No HEENT: No Loss of Vision: Denies Hearing Impairment: Denies Cancer: No Psychosocial: No Integumentary: No Blood Disorders: No Adverse Reaction/Blood Tranf: No (N/A) Family Medical History Reviewed Nursing Family Hx Diabetes, Hypertension Physical Exam Vital Signs Vital Signs - First Documented 08/05/19 08:48 Temp 35.3 Pulse 52 Resp 14 B/P (MAP) 152/92 (112) Pulse Ox 99 O2 Delivery Room Air Capillary Refill : Less Than 3 Seconds Height, Weight, BMI Height: 5'8.00" Weight: 195lbs. 0.0oz. 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, no motor/sensory deficits, alert, normal mood/affect, oriented x 3 Crainal Nerves: normal hearing, normal speech, PERRL Coordination/Gait: normal finger to nose (normal heel to pelletier), normal gait Skin: normal color, warm/dry Progress/Results/Core Measures Results/Orders My Orders Orders - JAYMIE WHITING MD Ondansetron Oral Dissolve Tab (Zofran (08/05/19 09:00) Medications Given in ED Current Medications Medications Dose Ordered Sig/Kayleigh Route Start Time Stop Time Status Last Admin Dose Admin Ondansetron HCl 8 mg ONCE ONCE SL 08/05/19 09:00 08/05/19 09:01 DC 08/05/19 09:03 8 MG Vital Signs/I&O 08/05/19 08/05/19 08:48 10:51 Temp 35.3 36.3 Pulse 52 57 Resp 14 16 B/P (MAP) 152/92 (112) 149/79 Pulse Ox 99 97 O2 Delivery Room Air Room Air Blood Pressure Mean: 112 Progress Progress Note : Time: 10:32 Progress Note Patient had no neurologic findings on exam. He denied any chest pain or shortness of breath. Vital signs were normal. He was treated with Zofran 8 mg sublingually. The Alexandra-Hallpike was then performed and was negative. Symptoms completely resolved. He was dismissed home with return precautions. See discharge instructions. Departure Impression Primary Impression: Vertigo Additional Impression: Nausea and vomiting Qualified Codes: R11.2 - Nausea with vomiting, unspecified Disposition: 01 HOME, SELF-CARE Condition: Improved Departure-Patient Inst. Decision time for Depature: 10:33 Referrals: ZACK LEAVITT MD (PCP/Family) Primary Care Physician Patient Instructions: Vertigo (a Type of Dizziness) (DC) Add. Discharge Instructions: Drink plenty of clear liquids. You may take Zofran (ondansetron) as prescribed for nausea and vomiting. You may follow that with meclizine 25 mg every 6 hours as needed if you still have dizziness after taking Zofran. Meclizine may be purchased [id number]. Return to the emergency room promptly if you develop additional associated symptoms such as chest pain, shortness of breath, changes in vision, weakness of an arm or leg, facial drooping, speech changes, confusion, loss of equilibrium, etc. Follow-up with your primary care provider within the next week. All discharge instructions reviewed with patient and/or family. Voiced understanding. Scripts Ondansetron (Ondansetron Odt) 4 Mg Tab.rapdis 4 MG SL Q4H PRN for NAUSEA/VOMITING, #10 TAB Prov: JAYMIE WHITING MD 08/05/19 Copy Copies To 1: ZACK LEAVITT MD Copies To 2: LISA NGUYEN MD FACP FACC CCDS JAYMIE WHITING MD Aug 05, 2019 10:35
[2019-08-05 10:51] VITALS: BP 149/79
== END 2019-08-05 10:53 | disposition home or self-care (01) ==
LOC: EDUNIT# 08:47 → ER 08:48
DX: R42 Dizziness and giddiness (principal); R11.2 Nausea with vomiting, unspecified; I10 Essential (primary) hypertension; I25.10 Atherosclerotic heart disease of native coronary artery without angina pectoris; K21.9 Gastro-esophageal reflux disease without esophagitis; Z79.82 Long term (current) use of aspirin; Z79.02 Long term (current) use of antithrombotics/antiplatelets; Z95.5 Presence of coronary angioplasty implant and graft
CPT/HCPCS: 99283

== ENCOUNTER 2020-12-19 05:38 | Outpatient (CLI) | payer MEDICARE ==
[~2020-12-19] VITALS: Ht 172.7 cm; Wt 91.8 kg
[~2020-12-19 05:38] MED LIST changes: +ONDA4TAB11 SL; -PANT40TA3 PO; +PANT40TA52 PO
[2020-12-19] MEDS ORDERED: LISI20TA26 PO (10:45)
== END 2020-12-19 11:12 | disposition home or self-care (01) ==
LOC: PREOP 05:38
PROVIDERS: ATTEND Surgery
DX: Z01.818 Encounter for other preprocedural examination (principal)

== ENCOUNTER 2020-12-26 06:52 | Day surgery (SDC) | payer MEDICARE ==
[2020-12-26] VITALS (12 sets, daily range): BP systolic 124–177; BP diastolic 64–93
[~2020-12-26] VITALS: Ht 172.7 cm; Wt 91.8 kg
[~2020-12-26 06:52] MED LIST changes: +LISI20TA26 PO
[2020-12-26] MEDS ORDERED: proPOfol 200 MG/20 ML (DIPRIVAN) VIAL IV ONE (06:56)
[2020-12-26] MEDS ORDERED: LIDOCAINE PF 2% 5 ML (XYLOCAINE) VIAL ONE (06:56)
[2020-12-26] MEDS ORDERED: ONDANSETRON 4 MG/2 ML (SDV) Z0FRAN ONE (06:56)
[2020-12-26] MEDS ORDERED: SEVOFLURANE (ULTANE) 15 ML INHAL SOLN ONE ×3 (06:56→11:28)
[2020-12-26] MEDS ORDERED: ROCURONIUM 10 MG/ML 5 ML SYRINGE IV ONE ×2 (06:56→08:52)
[2020-12-26] MEDS ORDERED: MIDAZOLAM 2 MG/2 ML (VERSED) VIAL ONE (06:57)
[2020-12-26] MEDS ORDERED: fentaNYL INJ 100 MCG/2 ML AMP ONE (06:57)
[2020-12-26] MEDS ORDERED: ceFAZolin 2 GM IV Premixed 50 ML IV ONE (07:00)
[2020-12-26] MEDS ORDERED: LIDOCAINE/EPI 1%-1:200,000 (XYLOCAINE) 30 ML VIAL ONE (07:15)
[2020-12-26] MEDS: LACTATED RINGERS 1,000 ML IV PRN ×3 (07:23→10:58)
[2020-12-26 07:30] LABS: HEMATOCRIT 43 % (40-54); HEMOGLOBIN 15.3 g/dL (13.3-17.7); MEAN CORPUSCULAR HEMOGLOBIN 32 pg (25-34); MEAN CORPUSCULAR HGB CONC 36 g/dL (32-36); MEAN CORPUSCULAR VOLUME 90 fL (80-99); MEAN PLATELET VOLUME 10.1 fL (9.0-12.2); PLATELET COUNT 158 10^3/uL (130-400); WHITE BLOOD COUNT 5.4 10^3/uL (4.3-11.0)
--- NOTE | 2020-12-26 08:18 | Progress Note-Pre Operative ---
Pre-Operative Progress Note H&P Reviewed The H&P was reviewed, patient examined and no changes noted. Time Seen by Provider: 08:14 Date H&P Reviewed: Dec 26, 2020 Time H&P Reviewed: 08:14 Pre-Operative Diagnosis: B/L inguinal hernia, Right larger and possibly inca rcerated ERA BARBA DO Dec 26, 2020 08:18
[2020-12-26] MEDS ORDERED: HYDROmorphone 2 MG/ML VIAL (DILAUDID) ONE (09:01)
[2020-12-26] MEDS ORDERED: GLYCOPYRROLATE 0.2 MG/ML (ROBINUL) 2 ML VIAL ONE (11:28)
[2020-12-26] MEDS ORDERED: NEOSTIGMINE 3 MG/3 ML VIAL ONE (11:28)
[2020-12-26] MEDS ORDERED: KETOROLAC 30 MG/ML VIAL ONE (11:30)
--- NOTE | 2020-12-26 11:48 | Progress Note-Post Operative ---
Post-Operative Progess Note Surgeon (s)/Teacher Citizenship (s) Surgeon ERA BARBA DO Teacher Citizenship: Jamie Pre-Operative Diagnosis B/L inguinal hernia, Right larger and possibly incarcerated Post-Operative Diagnosis B/L inguinal hernia, Left incarcerated B/L cord lipoma Procedure & Operative Findings Date of Procedure 12/26/20 Procedure Performed/Findings 1) Laparoscopic B/L inguinal herniarraphy with mesh placement, Robotic assist 2) Exc of cord lipoma, b/l After informed consent was obtained, the patient was brought to the operating room and placed on the operating table in a supine position. He was sterilely prepped and draped in a normal fashion. Local lidocaine was used to infiltrate the skin above the umbilicus. I made an incision with #11 blade, carried down to the skin into subcutaneous tissue and then deepened down the subcutaneous tissue with Bovie electrocautery down to the fascia. Fascia was incised with Bovie electrocautery and bluntly entered the abdomen, swept a finger around, placed 0 Vicryl [id number] suture and placed limited trocar port under direct visualization. Created pneumoperitoneum, able to visualize the hernias. On the left he had an incarcerated indirect hernia with intestine in the hernia and on the right he also had a large indirect inguinal hernia. Able to take a picture of both of these hernias. Then placed two 8 mm ports about 10 cm on either side of the midline port using a local lidocaine, 11 blade for stab incision and then advanced the robotic port under direct visualization. Once this was in, I then placed the patient in Trendelenburg and then placed the working instruments, the fenestrated bipolar and the scissors. Looked on the left side and saw the incarcerated inguinal hernia. I could also see an indirect hernia defect on the right side. Next, I came across the peritoneum approximately 8 cm away from the hernia defect, going across laterally starting lateral about 17cm and cutting toward the median umbilical ligament, I took this all the way across to the right side; also about 17cm over to be able to repair both defects. I then carefully dissected the visceral peritoneum away and down and then in the midline, went through the parietal side and dissected down to the pubic tubercle, dissecting this down carefully pushing the peritoneum away, I was able to then visualize the pubic tubercle and Delmar's ligament; I could see the entire thing, right, left and middle as I had completely freed this up for both mesh. I went 2 cm posterior and at this point, we then had a critical view of the dissection, able to dissect 2 cm across the midline to the right side, 2 cm posterior to the Delmar's ligament, able to then parietalize the vas deferens and spermatic vessels right at the groove between Delmar's and iliac vein and able to dissect, make sure there was no peritoneum between those two, able to see the indirect hernia space, took a picture of this, looked at the femoral space (no hernia seen). Then I carefully teased out the hernia sac and could visualize the indirect hernia space. Next I looked on the cord and cord structures. There was a large cord lipoma that I was able to reduce and cut off. This was then removed throught the port to get it out of the peritoneal space. I could clearly see the inguinal canal and the indirect space. Next I carried the posterior lateral dissection all the way out. I then peformed the exact same thing on the right side to free up the sac and remove a large lipoma. I then placed two 12 x 17 Midwieght Bard 3DMax mesh; right and left. They laid in nicely, covered the hernia defects and the rest of the area. It was above the peritoneum, sutured both to the pubic tubercle with a 3-0 Vicryl suture and tied this off. This appeared to lay in very nicely. I then brought down the pneumoperitoneum to about 8 mmHg and then started closing the peritoneum. Started laterally and used a 2-0 V-lock barbed suture to start a running stitch to close the peritoneum. This was closed nicely, took a picture of the closure at this point, then removed both needles had switched to a suture tilt tray driver from the scissors. The patient was then placed back supine, removed all ports under direct visualization, allowed pneumoperitoneum to escape and then closed the supraumbilical incision, closing the fascia with 0 Vicryl suture previously placed. Copiously irrigated all incisions and then closed the two small 8 mm incisions with two interrupted 4-0 undyed Monocryl subcuticular stitches and closed the supraumbilical incision with three interrupted undyed Monocryl subcuticular stitch. Area was cleaned and dried. Dermabond was placed. The patient tolerated the procedure. The sponge, instrument and needle counts were correct at the end of the case. Dr. Ayala assisted during this surgery by making incisions, closing incisions, helping to identify anatomy and passing/retrieving suture and needles. Anesthesia Type GET Estimated Blood Loss Estimated blood loss (mL): less than 30ml Specimens/Packing Specimens Removed b/l cord lipoma, question lymph node ERA BARBA DO Dec 26, 2020 11:47
[2020-12-26] MEDS ORDERED: ACHD5005 PO (11:49)
--- NOTE | 2020-12-26 11:50 | Discharge Inst-Surgical ---
Discharge Inst-Surgical Depart Medication/Instructions New, Converted or Re-Newed RX: Transmitted to Pharmacy Patient Instructions Follow up Appt: Make appointment for 1 week. [phone] Instructions: No lifting greater than 20 pounds. No strenuous activity. May shower in 24 hours, no tub bath or soaking. Use incentive spirometer at home as directed. No Smoking Skin/Wound Care: May remove bandages in am. You need to leave the Dermabond on incision it will fall off on it's own. Symptoms to Report: Appetite Changes, Extremity Discoloration, Numbness/Tingling, Swelling Increased, Bleeding Excessive, Eyesight Changes, Pain Increased, Urine Color Change, Constipation(Persistent), Fever over 101 degree F, Pain/Pressure in chest, Urinating Difficulty, Cough Up/Vomit Blood, Heart Beat Irreg/Pounding, Pain/Pressure in jaw, Cramps in feet or legs, Lightheadedness, Pain/Pressure in shoulder, Diarrhea(Persistent), Memory Changes Suddenly, Questions/Concerns, Weight gain consecutive days, Dizziness/Fainting, Nausea/Vomiting, Shortness of Breath, Weight gain over 2 pounds If questions or concerns contact your physician Or seek help at emergency department. Activity Activity as Tolerated: Yes Activity Instructions: Avoid Pulling & Pushing Driving Instructions: No Driving/Refer to Dr. Burleson Discharge Diet: No Restrictions Diet After 24 Hours: Clear Liquid if Nauseous If Any Problems/Questions/Issu: Contact Your Physician, Go to Emergency Room Skin/Wound Care Infection Signs and Symptoms: Increased Redness, Foul Odor of Wound, Increased Drainage, Skin Itchy or Has a Rash, Increased Swelling, Temperature Above 101 F Wound Care Comment: Heating pad to shoulder or neck tonight for pain Bathing Instructions: Shower Stitches/Reshma/Dermabond Dis: Dermabond Ice Pack: Ice On and Off Site (at incisions as needed for pain) ERA BARBA DO Dec 26, 2020 11:50
[2020-12-26] MEDS ORDERED: HYDROmorphone 2 MG/ML VIAL (DILAUDID) IV ONE (12:00)
[2020-12-26] MEDS ORDERED: ONDANSETRON 4 MG/2 ML (SDV) Z0FRAN IVP PRN (12:00)
--- NOTE | 2020-12-26 15:04 | Anesthesia-General Post-Op ---
General Patient Condition Mental Status/LOC: Same as Preop Cardiovascular: Satisfactory Nausea/Vomiting: Absent Respiratory: Satisfactory Pain: Controlled Complications: Absent Post Op Complications Complications None Follow Up Care/Instructions Patient Instructions None needed. Anesthesia/Patient Condition Patient Condition Patient is doing well, no complaints, stable vital signs, no apparent adverse anesthesia problems. No complications reported per nursing. D/C home per [facility] Criteria: Yes CELESTE GR CRNA Dec 26, 2020 15:04
== END 2020-12-26 13:55 | disposition home or self-care (01) ==
LOC: SDC 06:52
PROVIDERS: ATTEND Surgery
DX: K40.00 Bilateral inguinal hernia, with obstruction, without gangrene, not specified as recurrent (principal); D17.6 Benign lipomatous neoplasm of spermatic cord; I10 Essential (primary) hypertension; I25.10 Atherosclerotic heart disease of native coronary artery without angina pectoris; K21.9 Gastro-esophageal reflux disease without esophagitis; E78.5 Hyperlipidemia, unspecified; I65.29 Occlusion and stenosis of unspecified carotid artery; E66.9 Obesity, unspecified; Z68.30 Body mass index [BMI] 30.0-30.9, adult; Z79.899 Other long term (current) drug therapy; Z79.82 Long term (current) use of aspirin
CPT/HCPCS: 36415; 85027; 87081; 88304

== ENCOUNTER → 2021-06-27 | Outpatient (CLI) | payer MEDICARE ==
[~2021-06-27] MED LIST changes: +GADOTERATE 0.5 MMOL/ML (CLARISCAN) 15 ML VIAL IV ONE; -LISI1TAB26 PO; +LISI1TAB48 PO
--- NOTE | 2021-06-27 16:23 | Diagnostic Imaging Report ---
PROCEDURE: MR imaging of the brain with and without contrast. TECHNIQUE: Multiplanar, multisequence MR imaging of the brain was performed with and without contrast. INDICATION: Headaches COMPARISON: None TECHNIQUE: Routine pre and postcontrast enhanced multiplanar, multisequence MRI of the head was obtained. FINDINGS: The ventricles and cortical sulci are slightly prominent, compatible with age related volume loss. There are focal and confluent areas of abnormal T2 bright signal in the periventricular and subcortical white matter, compatible with small vessel ischemic change. There is no acute infarction. There is no midline shift or mass effect identified. No intraparenchymal or extraaxial hemorrhage or fluid collection is identified. There is no other focal parenchymal abnormality seen. There is no abnormal enhancement seen after the administration of gadolinium. The midline craniocervical anatomy is unremarkable. The major expected intracranial flow voids are seen. There are no focal calvarial lesions. The visualized paranasal sinuses are unremarkable. The mastoid air cells are clear. IMPRESSION: 1. No acute intracranial abnormalities. No acute infarction, acute intra-axial hemorrhage, or focal intra-axial mass. 2. Chronic small vessel ischemic changes in the periventricular and subcortical white matter. Dictated by: Dictated on workstation # [id number]
== END ==
LOC: RAD 14:00
DX: I67.82 Cerebral ischemia (principal)
CPT/HCPCS: 70553

== ENCOUNTER → 2022-02-03 | Outpatient (CLI) | payer MEDICARE ==
[~2022-02-03] MED LIST changes: -GADOTERATE 0.5 MMOL/ML (CLARISCAN) 15 ML VIAL IV ONE
== END ==
LOC: CARD 11:37
PROVIDERS: ATTEND Internal Medicine Cardiovascular Disease
DX: I25.10 Atherosclerotic heart disease of native coronary artery without angina pectoris (principal)
CPT/HCPCS: 93225; 93226; 93306

== ENCOUNTER → 2022-02-07 | Outpatient (CLI) | payer MEDICARE ==
[~2022-02-07] VITALS: Ht 172 cm; Wt 104.0 kg
[~2022-02-07] MED LIST changes: +CATHETER FLUSH 10 ML SYR IVP PRN; +REGADENOSON 0.4 MG/5 ML SYR (LEXISCAN) IV ONE
[2022-02-07 08:39] VITALS: BP 194/92
== END ==
LOC: CARD 07:35
PROVIDERS: ATTEND Internal Medicine Cardiovascular Disease
DX: I25.10 Atherosclerotic heart disease of native coronary artery without angina pectoris (principal)
CPT/HCPCS: 78452; 93017; A9502